=== PATIENT | female | born 1940 | race African-American/Black ===

== ENCOUNTER 2016-07-03 17:44 | Emergency (ER) | payer MEDICARE, MEDICAID ==
[2016-07-03] MEDS ORDERED: traMADol HCl 50 MG TAB ONE (20:15)
--- NOTE | 2016-07-03 21:14 | ERRECORD ---
[facility] EMERGENCY RECORD HPI NECK PAIN (20:14 LLDO) CHIEF COMPLAINT: Patient presents for evaluation of neck pain, Patient presents for evaluation of woke up with neck pain bilaterally, worse on the left. onset yesterday. HISTORIAN: History provided by patient, pt drove herself here today. MECHANISM OF INJURY: Mechanism of injury is unknown, No alcohol use associated with this incident, No drug use associated with this incident, No domestic violence associated with this incident. LOCATION: Symptoms are localized, most severe in the right lateral neck. QUALITY: Pain is dull in nature, described as aching, Different compared with previous episodes. SEVERITY: Maximum severity of symptoms severe, Currently symptoms are moderate. TIME COURSE: Sudden onset of symptoms, Symptoms are constant, Symptoms are worsening. ASSOCIATED WITH: No associated symptoms, No associated numbness, No associated open wounds, Patient over 65 years old, No associated paresthesias, No associated vomiting. EXACERBATED BY: Patient's condition exacerbated by movement of head, Patient's condition exacerbated by rotation. RELIEVED BY: Patient's condition relieved by remaining still. RISK FACTORS: Risk factors for spinal injury, include severe osteoarthritis, include rheumatoid arthritis. ROS CONSTITUTIONAL: Negative constitutional review of systems. (20:17 LLDO) EYES: Negative eye review of systems, Historian denies eye pain, denies eye redness, denies eye discharge. (20:32 LLDO) ENT: Negative ears, nose, throat review of systems, Historian denies epistaxis, denies rhinorrhea, denies sinus pain, denies sore throat. (20:32 LLDO) MUSCULOSKELETAL: Historian reports arthralgias, reports back pain, reports deformity, denies fall, reports injury, denies joint redness, denies joint stiffness, denies joint swelling, reports myalgias, reports neck pain. ONLY IN HPI. (20:17 LLDO) SKIN: Negative skin review of systems, Historian denies cellulitis, denies rash, denies skin changes, denies skin lesions. (20:32 LLDO) NEUROLOGIC: Negative neurologic review of systems, Historian denies confusion, denies dizziness, denies focal weakness, denies mental status changes. (20:32 LLDO) HEMO/LYMPHATIC: Normal hematologic/lymphatic system review, Historian denies abnormal blood clotting, denies gum bleeding, denies petechiae. (20:32 LLDO) ALLERGIC/IMMUNOLOGIC: Normal allergy/immunologic system review, Historian denies eczema, denies environmental allergies, denies food allergies. (20:32 LLDO) &a-1R&a+25V*p+0X*l6456S*c152B*c15G*c2P*p-0X&a-25V&a+1RName: Monique King : 1940 F76 MedRec: [id number] AcctNum: [id number] Prepared: SunJul 03, 2016 20:56 by Interface Page 1 of 4 pMD [facility] EMERGENCY RECORD PSYCHIATRIC: Negative psychiatric review of systems, Historian denies alcohol abuse, denies anxiety, denies depression, denies drug abuse, denies hallucinations. (20:32 LLDO) NOTES: All systems reviewed, negative except as described above. (20:17 LLDO) PAST MEDICAL HISTORY MEDICAL HISTORY: Flu vaccine up to date, Tetanus not up to date, Pneumococcal vaccine not up to date, Notes: GOUT, vaccine not up to date, Past medical history includes history of hypertension, which has been treated, hypertension, which has been treated, Patient is compliant, musculoskeletal disorder, gout, acid reflux. - 09/30/15. VERIFIED 04/07/16. VERIFIED 06/26/16. (SunJul 03, 2016 18:14 MDEB) FEMALE SURGICAL HISTORY: Surgical history of hysterectomy. VERIFIED 04/07/16. VERIFIED . (SunJul 03, 2016 18:14 MDEB) PSYCHIATRIC HISTORY: Psychiatric history includes. DENIES. DENIES 06/26/16. (SunJul 03, 2016 18:14 MDEB) SOCIAL HISTORY: Patient denies alcohol use, Patient denies drug use, Patient has no smoking history, Patient denies alcohol use, Patient denies drug use, Patient has no smoking history. VERIFIED 04/07/16. (SunJul 03, 2016 18:14 MDEB) NOTES: Nursing records reviewed, Agree with nursing records, Medication list reviewed. (20:32 LLDO) KNOWN ALLERGIES codeine phosphate (bulk): Reaction: Rash fish (Unconfirmed) ibuprofen (bulk): Reaction: Hives penicillin G sodium: Reaction: Rash, Severity: Mild, Source: Patient CURRENT MEDICATIONS No recorded medications VITAL SIGNS (18:12 MDEB) VITAL SIGNS: BP: 175/92, Pulse: 98, Resp: 20, Temp: 98.4 (Oral), Pain: 10, O2 sat: 98 on Room Air, Time: 07/03/2016 18:12. PHYSICAL EXAM CONSTITUTIONAL: Vital Signs Reviewed, Patient afebrile, Pulse normal, Blood pressure, BP ELEVATED, Respiratory rate normal, Normal pulse oximetry, Patient appears, uncomfortable, Patient appears, in severe pain distress, Patient alert and oriented to person, place and time, No distracting injujry, Nursing notes reviewed. (20:29 LLDO) HEAD: Head exam normal, Head exam included findings of head atraumatic, normocephalic. (20:32 LLDO) EYES: Eye exam normal, Eye exam included findings of eyelids normal to inspection, Pupils equally round and reactive to light, &a-1R&a+25V*p+0X*p4980Y*c152B*c15G*c2P*p-0X&a-25V&a+1RName: Monique King : 1940 F76 MedRec: [id number] AcctNum: [id number] Prepared: SunJul 03, 2016 20:56 by Interface Page 2 of 4 pMD [facility] RECORD Extraocular muscles intact. (20:32 LLDO) ENT: Ear exam normal, Nose exam normal, Pharynx exam normal, Uvula exam normal, Tonsil exam normal, Mouth exam normal, Sinus exam included findings of frontal sinuses normal, maxillary sinuses normal. (20:29 LLDO) NECK: Neck exam, Neck exam included findings of, range of motion limited by pain, Trachea midline, Thyroid, Signs of trauma include, no carotid bruits, no meningeal signs, no jugular venous distention, no cervical adenopathy, Tenderness, strap muscles on right very tender. much milder on left. (20:29 LLDO) BACK: Back exam normal, Back exam included findings of normal inspection, range of motion normal. (20:32 LLDO) UPPER EXTREMITY: Upper extremity exam normal, Upper extremity exam included findings of inspection normal, Range of motion normal. (20:32 LLDO) LOWER EXTREMITY: Lower extremity exam normal, Lower extremity exam included findings of inspection normal, Range of motion normal. (20:32 LLDO) NEURO: Neuro exam normal, Neuro exam findings include patient oriented to person, place and time, Speech normal, Harpal coma scale 15. (20:32 LLDO) SKIN: Skin exam normal, Skin exam included findings of skin warm, dry, and normal in color, no rash. (20:32 LLDO) PSYCHIATRIC: Psychiatric exam normal, Psychiatric exam included findings of patient oriented to person place and time, Normal affect. (20:32 LLDO) MEDICATION ADMINISTRATION SUMMARY Drug Name: *Ultram, Dose Ordered: 1-2 tab(s), Route: Oral, Status: Given, Time: 20:40 07/03/2016, Drug Name: Ultram, Dose Ordered: 2 tab(s), Route: Oral, Status: Given, Time: 20:15 07/03/2016, *Additional information available in notes, Detailed record available in Medication Service section. PROBLEM LIST No recorded problems DIAGNOSIS (20:03 LLDO) FINAL: PRIMARY: CERVICALGIA. PRESCRIPTION (20:04 LLDO) Valium oral: TABLET : 5 mg : ORAL : Quantity: 1 Unit: tab(s) Route: ORAL Schedule: every 6 hours PRN Dispense: 30 Unit: tab(s) May substitute. Refills: No Refills . NOTES: FOR TIGHTNESS OR MUSCLE SPASMS IN THE BACK No Refills. Ultram: TABLET : 50 mg : ORAL : Quantity: 1-2 Unit: tab(s) Route: ORAL Schedule: every 4 hours prn Dispense: 20 &a-1R&a+25V*p+0X*e2973H*c152B*c15G*c2P*p-0X&a-25V&a+1RName: Christine Monique G : 1940 F76 MedRec: [id number] AcctNum: [id number] Prepared: SunJul 03, 2016 20:56 by Interface Page 3 of 4 pMD [facility] RECORD May substitute. Refills: No Refills POTENTIAL ALLERGY REACTION: 'codeine phosphate (bulk) [codeine/codeine phosphate]' Override Rationale: Reviewed with patient, pt says can safely take this med. NOTES: No Refills. DISPOSITION PATIENT: Disposition Type: Discharge, Disposition: *Discharge Home. (20:03 MARISA) Patient left the department. (20:50 FREDY) Heller: MARISA=MD Julianne, Axel DANIEL=DIPIKA Eckert, Melba &a-1R&a+25V*p+0X*g3444T*c152B*c15G*c2P*p-0X&a-25V&a+1RName: Monique King : 1940 F76 MedRec: [id number] AcctNum: [id number] Prepared: SunJul 03, 2016 20:56 by Interface Page 4 of 4 pMD MTDD
--- NOTE | 2016-07-03 21:19 | PICIS ---
[facility] EMERGENCY RECORD TRIAGE (SunJul 03, 2016 18:14 MDEB) PATIENT: NAME: Monique King, AGE: 76, GENDER: female, : Sat 1940, TIME OF GREET: SunJul 03, 2016 17:45, PREFERRED LANGUAGE: Yoruba, RACE: Black or , ETHNICITY: Not or , FALL RISK: YES, ECODE BILLING MAP: [facility], SSN: [id number], Zip Code: [address], KG WEIGHT: 48.99, PHONE: , , , PERSON ID: [id number], PCP: MD SAMS IMELDA. (SunJul 03, 2016 18:14 MDEB) TRIAGE NOTES: R SIDE NECK PAIN SINCE YESTERDAY MORNING. (SunJul 03, 2016 18:14 MDEB) COMPLAINT: NECK & LT SHOULDER PAIN. (SunJul 03, 2016 18:14 MDEB) ADMISSION: URGENCY: 4 Non Urgent, ADMISSION SOURCE: Home, TRANSPORT: Walk-in, BED: TRIAGE. (SunJul 03, 2016 18:14 MDEB) PAIN: Patient complains of pain described as, aching, on a scale 0-10 patient rates pain as 10. (SunJul 03, 2016 18:14 MDEB) IMMUNIZATIONS: Tetanus immunization up to date, Pneumococcal vaccine up to date. (SunJul 03, 2016 18:14 MDEB) TRIAGE SCREENING: Patient denies suicidal ideation, Patient denies presence of domestic violence. (SunJul 03, 2016 18:14 MDEB) PROVIDERS: TRIAGE NURSE: Melba Eckert RN. (SunJul 03, 2016 18:14 MDEB) VITAL SIGNS: BP 175/92, Pulse 98, Resp 20, Temp 98.4, (Oral), Pain 10, O2 Sat 98, on Room Air, Time 07/03/2016 18:12. (18:12 MDEB) PREVIOUS VISIT ALLERGIES: codeine phosphate (bulk), fish, ibuprofen (bulk), penicillin G sodium. (SunJul 03, 2016 18:14 MDEB) KNOWN ALLERGIES codeine phosphate (bulk): Reaction: Rash fish (Unconfirmed) ibuprofen (bulk): Reaction: Hives penicillin G sodium: Reaction: Rash, Severity: Mild, Source: Patient CURRENT MEDICATIONS No recorded medications VITAL SIGNS (18:12 MDEB) VITAL SIGNS: BP: 175/92, Pulse: 98, Resp: 20, Temp: 98.4 (Oral), Pain: 10, O2 sat: 98 on Room Air, Time: 07/03/2016 18:12. NURSING ASSESSMENT: NECK (18:14 MDEB) CONSTITUTIONAL: Patient arrives ambulatory, Gait steady, History obtained from patient, Patient appears, anxious, in distress due to pain, uncomfortable, Patient cooperative, Patient alert, Oriented to person, place and time, Skin warm, Skin dry, Skin normal in color, Mucous membranes pink, Mucous membranes moist, Patient is well-groomed, Patient complains of R SIDE NECK STRAIN. &a-1R&a+25V*p+0X*d7695R*c152B*c15G*c2P*p-0X&a-25V&a+1RName: Monique King : 1940 F76 MedRec: [id number] AcctNum: [id number] Prepared: SunJul 03, 2016 21:03 by Interface Page 1 of 6 pMD [facility] EMERGENCY RECORD PAIN: aching pain, on a scale 0-10 patient rates pain as 10, Pain exacerbated by nothing, Nothing has been tried to alleviate the pain. NECK: Neck assessment findings include trachea midline. RESPIRATORY/CHEST: Respiratory assessment findings include respiratory effort easy, Respirations regular, Conversing normally, Neck and chest exam findings include trachea midline, Chest expansion equal, Chest movement symmetrical. NOTES: Emotional support needed and given, Patient tolerated procedure well. SAFETY: Side rails up, Cart/Stretcher in lowest position, Family at bedside, Call light within reach, Hospital ID band on. NURSING PROCEDURE: DISCHARGE NOTE (20:45 MDEB) DISCHARGE: Patient discharged to home, ambulating without assistance, driving self, unaccompanied, Summary of Care printed/ provided, Patient requested and was provided an electronic copy of Discharge Instructions, Transition record given to patient, Discharge instructions given to patient, Simple or moderate discharge teaching performed, MEDICATIONS, Prescriptions given and instructions on side effects given, Above person(s) verbalized understanding of discharge instructions and follow-up care, Patient treated and evaluated by physician. BELONGINGS: Belongings remain with patient, Valuables remain with patient. NOTES: Emotional support needed and given, Patient tolerated procedure well. MEDICATION ADMINISTRATION SUMMARY Drug Name: *Ultram, Dose Ordered: 1-2 tab(s), Route: Oral, Status: Given, Time: 20:40 07/03/2016, Drug Name: Ultram, Dose Ordered: 2 tab(s), Route: Oral, Status: Given, Time: 20:15 07/03/2016, *Additional information available in notes, Detailed record available in Medication Service section. MEDICATION SERVICE Ultram: Order: Ultram (tramadol HCl) - Dose: 2 tab(s) : Oral POTENTIAL ALLERGY REACTION: 'codeine phosphate (bulk) [codeine/codeine phosphate]' - Reviewed with patient, pt says can safely take this med Schedule: Now Ordered by: Axel Whitaker MD Entered by: Axel Whitaker MD SunJul 03, 2016 20:01 , Acknowledged by: Melba Eckert RN SunJul 03, 2016 20:14 Documented as given by: Melba Eckert RN SunJul 03, 2016 20:15 Patient, Medication, Dose, Route and Time verified prior to administration. Amount given: 2 TABS, Site: Medication administered P.O., Correct patient, time, route, dose and medication confirmed prior to &a-1R&a+25V*p+0X*j1071B*c152B*c15G*c2P*p-0X&a-25V&a+1RName: Monique King : 1940 F76 MedRec: [id number] AcctNum: [id number] Prepared: SunJul 03, 2016 21:03 by Interface Page 2 of 6 pMD [facility] EMERGENCY RECORD administration, Patient advised of actions and side-effects prior to administration, Allergies confirmed and medications reviewed prior to administration, Patient in position of comfort, Side rails up, Cart in lowest position, Family at bedside. Ultram: Order: Ultram (tramadol HCl) - Dose: 1-2 tab(s) : Oral POTENTIAL ALLERGY REACTION: 'codeine phosphate (bulk) [codeine/codeine phosphate]' - Reviewed with patient Notes: Take home pack of 6 tabs. Take 1-2 tablets every 4-6 hours as needed for pain Ordered by: Axel Whitaker MD Entered by: Axel Whitaker MD SunJul 03, 2016 20:28 , Acknowledged by: Melba Eckert RN SunJul 03, 2016 20:36 Documented as given by: Melba Eckert RN SunJul 03, 2016 20:40 Patient, Medication, Dose, Route and Time verified prior to administration. Amount given: [id number], Site: Medication administered P.O., Patient in position of comfort, Side rails up, Cart in lowest position, Family at bedside. HPI NECK PAIN (20:14 LLDO) CHIEF COMPLAINT: Patient presents for evaluation of neck pain, Patient presents for evaluation of woke up with neck pain bilaterally, worse on the left. onset yesterday. HISTORIAN: History provided by patient, pt drove herself here today. MECHANISM OF INJURY: Mechanism of injury is unknown, No alcohol use associated with this incident, No drug use associated with this incident, No domestic violence associated with this incident. LOCATION: Symptoms are localized, most severe in the right lateral neck. QUALITY: Pain is dull in nature, described as aching, Different compared with previous episodes. SEVERITY: Maximum severity of symptoms severe, Currently symptoms are moderate. TIME COURSE: Sudden onset of symptoms, Symptoms are constant, Symptoms are worsening. ASSOCIATED WITH: No associated symptoms, No associated numbness, No associated open wounds, Patient over 65 years old, No associated paresthesias, No associated vomiting. EXACERBATED BY: Patient's condition exacerbated by movement of head, Patient's condition exacerbated by rotation. RELIEVED BY: Patient's condition relieved by remaining still. RISK FACTORS: Risk factors for spinal injury, include severe osteoarthritis, include rheumatoid arthritis. ROS CONSTITUTIONAL: Negative constitutional review of systems. (20:17 LLDO) EYES: Negative eye review of systems, Historian denies eye pain, denies eye redness, denies eye discharge. (20:32 LLDO) &a-1R&a+25V*p+0X*z2966T*c152B*c15G*c2P*p-0X&a-25V&a+1RName: Monique King : 1940 F76 MedRec: [id number] AcctNum: [id number] Prepared: SunJul 03, 2016 21:03 by Interface Page 3 of 6 pMD [facility] EMERGENCY RECORD ENT: Negative ears, nose, throat review of systems, Historian denies epistaxis, denies rhinorrhea, denies sinus pain, denies sore throat. (20:32 LLDO) MUSCULOSKELETAL: Historian reports arthralgias, reports back pain, reports deformity, denies fall, reports injury, denies joint redness, denies joint stiffness, denies joint swelling, reports myalgias, reports neck pain. ONLY IN HPI. (20:17 LLDO) SKIN: Negative skin review of systems, Historian denies cellulitis, denies rash, denies skin changes, denies skin lesions. (20:32 LLDO) NEUROLOGIC: Negative neurologic review of systems, Historian denies confusion, denies dizziness, denies focal weakness, denies mental status changes. (20:32 LLDO) HEMO/LYMPHATIC: Normal hematologic/lymphatic system review, Historian denies abnormal blood clotting, denies gum bleeding, denies petechiae. (20:32 LLDO) ALLERGIC/IMMUNOLOGIC: Normal allergy/immunologic system review, Historian denies eczema, denies environmental allergies, denies food allergies. (20:32 LLDO) PSYCHIATRIC: Negative psychiatric review of systems, Historian denies alcohol abuse, denies anxiety, denies depression, denies drug abuse, denies hallucinations. (20:32 LLDO) NOTES: All systems reviewed, negative except as described above. (20:17 LLDO) PAST MEDICAL HISTORY MEDICAL HISTORY: Flu vaccine up to date, Tetanus not up to date, Pneumococcal vaccine not up to date, Notes: GOUT, vaccine not up to date, Past medical history includes history of hypertension, which has been treated, hypertension, which has been treated, Patient is compliant, musculoskeletal disorder, gout, acid reflux. - 09/30/15. VERIFIED 04/07/16. VERIFIED 06/26/16. (SunJul 03, 2016 18:14 MDEB) FEMALE SURGICAL HISTORY: Surgical history of hysterectomy. VERIFIED 04/07/16. VERIFIED . (SunJul 03, 2016 18:14 MDEB) PSYCHIATRIC HISTORY: Psychiatric history includes. DENIES. DENIES 06/26/16. (SunJul 03, 2016 18:14 MDEB) SOCIAL HISTORY: Patient denies alcohol use, Patient denies drug use, Patient has no smoking history, Patient denies alcohol use, Patient denies drug use, Patient has no smoking history. VERIFIED 04/07/16. (SunJul 03, 2016 18:14 MDJAMAL) NOTES: Nursing records reviewed, Agree with nursing records, Medication list reviewed. (20:32 LLDO) PHYSICAL EXAM CONSTITUTIONAL: Vital Signs Reviewed, Patient afebrile, Pulse normal, Blood pressure, BP ELEVATED, Respiratory rate normal, Normal pulse oximetry, Patient appears, uncomfortable, Patient appears, in severe &a-1R&a+25V*p+0X*c0867Y*c152B*c15G*c2P*p-0X&a-25V&a+1RName: Monique King : 1940 F76 MedRec: [id number] AcctNum: [id number] Prepared: SunJul 03, 2016 21:03 by Interface Page 4 of 6 pMD [facility] EMERGENCY RECORD pain distress, Patient alert and oriented to person, place and time, No distracting injujry, Nursing notes reviewed. (20:29 LLDO) HEAD: Head exam normal, Head exam included findings of head atraumatic, normocephalic. (20:32 LLDO) EYES: Eye exam normal, Eye exam included findings of eyelids normal to inspection, Pupils equally round and reactive to light, Extraocular muscles intact. (20:32 LLDO) ENT: Ear exam normal, Nose exam normal, Pharynx exam normal, Uvula exam normal, Tonsil exam normal, Mouth exam normal, Sinus exam included findings of frontal sinuses normal, maxillary sinuses normal. (20:29 LLDO) NECK: Neck exam, Neck exam included findings of, range of motion limited by pain, Trachea midline, Thyroid, Signs of trauma include, no carotid bruits, no meningeal signs, no jugular venous distention, no cervical adenopathy, Tenderness, strap muscles on right very tender. much milder on left. (20:29 LLDO) BACK: Back exam normal, Back exam included findings of normal inspection, range of motion normal. (20:32 LLDO) UPPER EXTREMITY: Upper extremity exam normal, Upper extremity exam included findings of inspection normal, Range of motion normal. (20:32 LLDO) LOWER EXTREMITY: Lower extremity exam normal, Lower extremity exam included findings of inspection normal, Range of motion normal. (20:32 LLDO) NEURO: Neuro exam normal, Neuro exam findings include patient oriented to person, place and time, Speech normal, [place] coma scale 15. (20:32 LLDO) SKIN: Skin exam normal, Skin exam included findings of skin warm, dry, and normal in color, no rash. (20:32 LLDO) PSYCHIATRIC: Psychiatric exam normal, Psychiatric exam included findings of patient oriented to person place and time, Normal affect. (20:32 LLDO) EVENTS TRANSFER: Triage to Emergency Triage. (18:14 MDEB) Emergency Triage to Waiting. (18:15 MDEB) Emergency Waiting to Main ED -04. (18:43 MDEB) Removed from Emergency Main ED -04. (20:50 MDEB) PROBLEM LIST No recorded problems DIAGNOSIS (20:03 LLDO) FINAL: PRIMARY: CERVICALGIA. DISPOSITION PATIENT: Disposition Type: Discharge, Disposition: *Discharge Home. (20:03 LLDO) Patient left the department. (20:50 MDEB) &a-1R&a+25V*p+0X*z9123B*c152B*c15G*c2P*p-0X&a-25V&a+1RName: Monique King : 1940 F76 MedRec: [id number] AcctNum: [id number] Prepared: SunJul 03, 2016 21:03 by Interface Page 5 of 6 pMD [facility] EMERGENCY RECORD INSTRUCTION (20:06 LLDO) DISCHARGE: NECK PAIN, NO TRAUMA. FOLLOWUP: MD FLAQUITA, [facility], [facility], [address] [place] [id number], [phone], Follow up with Primary Care Physician in 7-10 days. SPECIAL: Follow-up with your PCP. PRESCRIPTION (20:04 LLDO) Valium oral: TABLET : 5 mg : ORAL : Quantity: 1 Unit: tab(s) Route: ORAL Schedule: every 6 hours PRN Dispense: 30 Unit: tab(s) May substitute. Refills: No Refills . NOTES: FOR TIGHTNESS OR MUSCLE SPASMS IN THE BACK No Refills. Ultram: TABLET : 50 mg : ORAL : Quantity: 1-2 Unit: tab(s) Route: ORAL Schedule: every 4 hours prn Dispense: 20 May substitute. Refills: No Refills POTENTIAL ALLERGY REACTION: 'codeine phosphate (bulk) [codeine/codeine phosphate]' Override Rationale: Reviewed with patient, pt says can safely take this med. NOTES: No Refills. ADMIN (20:33 LLDO) DIGITAL SIGNATURE: MD Whitaker Lloyd. Heller: LLDO=MD Whitaker Lloyd MDEB=DIPIKA Eckert, Melba &a-1R&a+25V*p+0X*c8249G*c152B*c15G*c2P*p-0X&a-25V&a+1RName: Monique King : 1940 F76 MedRec: [id number] AcctNum: [id number] Prepared: SunJul 03, 2016 21:03 by Interface Page 6 of 6 pMD [facility] MEDICATION RECONCILIATION You were seen in the Emergency Department on: SunJul 03, 2016 KNOWN ALLERGIES codeine phosphate (bulk): Reaction: Rash fish (Unconfirmed) ibuprofen (bulk): Reaction: Hives penicillin G sodium: Reaction: Rash, Severity: Mild, Source: Patient MEDICATIONS GIVEN WHILE IN THE EMERGENCY DEPARTMENT Ultram (tramadol HCl) - Dose: 2 tab(s) : Oral Ultram (tramadol HCl) - Dose: 1-2 tab(s) : Oral Notes from the emergency department Reviewed with patient PRESCRIPTIONS (2) Printed (2) Valium oral : TABLET : 5 mg : ORAL Quantity: 1, Unit: tab(s), Route: ORAL, Schedule: every 6 hours PRN, Dispense: 30 Unit: tab(s) &a-1R&a+25V*p+0X*o5940F*c202B*c15G*c2P*p-0X&a-25V&a+1R Name: Monique King : 1940 F76 MedRec: [id number] AcctNum: [id number] Prepared: SunJul 03, 2016 21:03 by Interface pMD [facility]ITAL[facility]
== END 2016-07-03 20:45 | disposition home or self-care (01) ==
LOC: MADERS 17:44
DX: M54.2 Cervicalgia (principal); I10 Essential (primary) hypertension; Z90.710 Acquired absence of both cervix and uterus
CPT/HCPCS: 99283

== ENCOUNTER 2016-08-07 07:49 | Outpatient (CLI) | payer MEDICARE, MEDICAID ==
[2016-08-07 08:23] LABS: #Lymphocytes 0.9 thou/uL (1.20-3.40); #Monocytes 0.3 thou/uL (0.11-0.59); %Basophils 0.6 % (0.0-1.0); %Lymphocytes 17.4 % (21.0-51.0); %Monocytes 5.8 % (0.0-10.0); %Neutrophils 76.2 % (42.0-75.0); Mean Corpuscular HGB CONC 34.4 g/dL (32.0-36.0); Mean Corpuscular Hemoglobin 29.9 pg (27.0-31.0); Mean Corpuscular Volume 87.1 fl (81.0-99.0); Platelet Count 181 thou/uL (130-400); RBC Distribution Width 12.4 % (11.5-14.5); Red Blood Cell (RBC) Count 3.69 mill/uL (4.20-5.40); White Blood Cell (WBC) Count 5.2 thou/uL (4.8-10.8)
[2016-08-07 08:40] LABS: ALT (SGPT) Less than 6 U/L (0-55); AST (SGOT) 9 U/L (5-34); Alkaline Phosphatase 86 U/L (40-150); Anion Gap 16 mmol/L (10-20); BUN (Urea Nitrogen) 25 mg/dL (9.8-20.1); Bilirubin, Total 0.3 mg/dL (0.2-1.2); Calc. Creatinine Clearance 0 mL/min (70-130); Calcium 9.4 mg/dL (7.8-10.44); Carbon Dioxide 25 mmol/L (23-31); Cardiac Risk 2.9 (Less than 4.5); Chloride 107 mmol/L (98-107); Cholesterol 196 mg/dL (< 200 Desired); Estimated GFR-MDRD 53; Globulin 3.3 g/dL (2.4-3.5); Glucose 100 mg/dL (83-110); HDL Cholesterol 67 mg/dL (>60 Neg Risk); LDL Cholesterol, Calculated 115 mg/dL; Potassium 4.3 mmol/L (3.5-5.1); Protein, Total 7.3 g/dL (5.8-8.1); Sodium 144 mmol/L (136-145); Triglycerides 68 mg/dL (Less than 150); Uric Acid 5.9 mg/dL (2.6-6.0)
[2016-08-07 17:00] LABS: Iron 51 ug/dL (50-170)
== END 2016-08-07 07:50 ==
LOC: MADLABBHPM 07:49
PROVIDERS: ATTEND Family Medicine
DX: D64.9 Anemia, unspecified (principal); M1A.9XX0 Chronic gout, unspecified, without tophus (tophi); I10 Essential (primary) hypertension
CPT/HCPCS: 36415; 80053; 80061; 82728; 83540; 84550; 85025

== ENCOUNTER 2016-08-10 16:48 | Emergency (ER) | payer MEDICARE, MEDICAID ==
[2016-08-10] MEDS ORDERED: Clindamycin 150 MG CAP ONE (18:06)
[2016-08-10] MEDS ORDERED: Benzonatate 100 MG CAP ONE ×2 (18:06→18:11)
== END 2016-08-10 18:16 | disposition home or self-care (01) ==
LOC: MADERS 16:48
DX: J20.9 Acute bronchitis, unspecified (principal); I10 Essential (primary) hypertension; M10.9 Gout, unspecified; Z79.899 Other long term (current) drug therapy
CPT/HCPCS: 99284

== ENCOUNTER 2016-09-06 10:13 | Emergency (ER) | payer MEDICARE, MEDICAID ==
[2016-09-06] MEDS ORDERED: Oxymetazoline HCl 0.05% ( 15 ML ) ONE (10:58)
[2016-09-06] MEDS ORDERED: Benzonatate 100 MG CAP ONE (10:58)
[2016-09-06] MEDS ORDERED: Clindamycin 150 MG CAP ONE (10:58)
== END 2016-09-06 11:15 | disposition home or self-care (01) ==
LOC: MADERS 10:13
DX: J20.9 Acute bronchitis, unspecified (principal); J30.1 Allergic rhinitis due to pollen; I10 Essential (primary) hypertension; Z79.899 Other long term (current) drug therapy
CPT/HCPCS: 99283

== ENCOUNTER 2016-09-12 20:07 | Emergency (ER) | payer MEDICARE, MEDICAID ==
[2016-09-12] MEDS ORDERED: Bisacodyl 10 MG SUPP ONE ×2 (20:25→21:45)
[2016-09-12] MEDS ORDERED: Fleet Enema 133 ML BOT ONE (20:51)
--- NOTE | 2016-09-12 21:20 | RAD ---
ABDOMEN TWO VIEWS UPRIGHT CHEST X-RAY 09/12/16 HISTORY: Abdominal pain. COMPARISON: Chest radiographs 06/20/13 FINDINGS: There is some granulomas throughout the lungs similar to the comparison examination. Severe degenera tive change of the right glenohumeral joint. There has been prior resection of the left humeral diap hysis. Heart size is similar. No free air under the hemidiaphragms on the upright view of the chest. There is relative paucity of bowel gas. There appears to be large stool burden in the rectal vault. IMPRESSION: 1. No acute intrathoracic abnormality. 2. Large volume stool throughout the rectal vault with relative paucity of gas, likely sequela of constipation. 3. No dilated loops of air filled large or small bowel. 4. Extensive spondylosis throughout the lumbar spine. POS: NANCY
[2016-09-12] MEDS ORDERED: Magnesium Citrate 300 ML BOT ONE (22:02)
== END 2016-09-12 22:45 | disposition home or self-care (01) ==
LOC: MADERS 20:07
DX: K59.00 Constipation, unspecified (principal); I10 Essential (primary) hypertension; Z79.899 Other long term (current) drug therapy
CPT/HCPCS: 74022

== ENCOUNTER 2016-10-29 11:45 | Emergency (ER) | payer MEDICARE, MEDICAID | END 2016-10-29 12:26 | disposition home or self-care (01) | LOC: MADERS 11:45 | DX: M19.072 Primary osteoarthritis, left ankle and foot (principal); M19.071 Primary osteoarthritis, right ankle and foot; M10.9 Gout, unspecified; I10 Essential (primary) hypertension; K21.9 Gastro-esophageal reflux disease without esophagitis; Z79.899 Other long term (current) drug therapy | CPT/HCPCS: 99283 ==

== ENCOUNTER 2016-11-06 07:37 | Outpatient (CLI) | payer MEDICARE, MEDICAID ==
[2016-11-06 07:59] LABS: #Lymphocytes 0.8 thou/uL (1.20-3.40); #Monocytes 0.3 thou/uL (0.11-0.59); #Neutrophils 4.3 thou/uL (1.40-6.50); %Basophils 0.5 % (0.0-1.0); %Lymphocytes 15.4 % (21.0-51.0); %Monocytes 6.3 % (0.0-10.0); %Neutrophils 77.9 % (42.0-75.0); Hemoglobin 10.3 g/dL (12.0-16.0); Mean Corpuscular HGB CONC 33.6 g/dL (32.0-36.0); Mean Corpuscular Hemoglobin 29.9 pg (27.0-31.0); Mean Platelet Volume 6.6 fL (7.4-10.4); Platelet Count 197 thou/uL (130-400); RBC Distribution Width 12.9 % (11.5-14.5); Red Blood Cell (RBC) Count 3.45 mill/uL (4.20-5.40); White Blood Cell (WBC) Count 5.5 thou/uL (4.8-10.8)
== END 2016-11-06 07:38 | disposition home or self-care (01) ==
LOC: MADLABBHPM 07:37
PROVIDERS: ATTEND Family Medicine
DX: E61.1 Iron deficiency (principal)
CPT/HCPCS: 36415; 82728; 83540; 85025

== ENCOUNTER 2016-11-06 17:48 | Emergency (ER) | payer MEDICARE, MEDICAID ==
[2016-11-06] MEDS ORDERED: cloNIDine HCl 0.1 MG TAB ONE (18:20)
== END 2016-11-06 19:23 | disposition home or self-care (01) ==
LOC: MADERS 17:48
DX: I10 Essential (primary) hypertension (principal); K21.9 Gastro-esophageal reflux disease without esophagitis; Z79.899 Other long term (current) drug therapy
CPT/HCPCS: 99283

== ENCOUNTER 2017-01-07 06:29 | Emergency (ER) | payer MEDICARE, MEDICAID ==
[2017-01-07] MEDS ORDERED: Acetaminophen 325 MG TAB ONE (07:44)
--- NOTE | 2017-01-07 09:12 | RAD ---
3 VIEWS RIGHT SHOULDER: Date: 01/07/17 COMPARISON: None. HISTORY: Severe osteoarthritis. Trauma to the shoulder. FINDINGS: Three views of the right shoulder show no evidence of acute fracture or dislocation. There is severe joint space narrowing and osteophyte formation in the glenohumeral and acromioclavicular joints con sistent with severe osteoarthritis. The visualized right thorax is unremarkable. IMPRESSION: Severe right shoulder osteoarthritis without acute osseous abnormality. POS: [facility]
== END 2017-01-07 08:05 | disposition home or self-care (01) ==
LOC: MADERS 06:29
DX: S43.401A Unspecified sprain of right shoulder joint, initial encounter (principal); M10.9 Gout, unspecified; I10 Essential (primary) hypertension; K21.9 Gastro-esophageal reflux disease without esophagitis; Z79.899 Other long term (current) drug therapy; W01.0XXA Fall on same level from slipping, tripping and stumbling without subsequent striking against object, initial encounter

== ENCOUNTER 2017-01-16 07:53 | Outpatient (CLI) | payer MEDICARE, MEDICAID ==
[2017-01-16 08:21] LABS: #Lymphocytes 0.8 thou/uL (1.20-3.40); #Monocytes 0.3 thou/uL (0.11-0.59); #Neutrophils 3.8 thou/uL (1.40-6.50); %Basophils 0.5 % (0.0-1.0); %Lymphocytes 17.2 % (21.0-51.0); %Monocytes 5.6 % (0.0-10.0); %Neutrophils 76.7 % (42.0-75.0); Hemoglobin 9.7 g/dL (12.0-16.0); Mean Corpuscular HGB CONC 32.4 g/dL (32.0-36.0); Mean Corpuscular Hemoglobin 28.4 pg (27.0-31.0); Mean Corpuscular Volume 87.7 fl (81.0-99.0); Mean Platelet Volume 5.9 fL (7.4-10.4); Platelet Count 203 thou/uL (130-400); RBC Distribution Width 13.1 % (11.5-14.5); White Blood Cell (WBC) Count 4.9 thou/uL (4.8-10.8)
[2017-01-16 08:35] LABS: ALT (SGPT) 6 U/L (8-55); AST (SGOT) 10 U/L (5-34); Albumin 3.6 g/dL (3.4-4.8); Alkaline Phosphatase 70 U/L (40-150); Anion Gap 15 mmol/L (10-20); BUN (Urea Nitrogen) 24 mg/dL (9.8-20.1); Bilirubin, Total Less than 0.3 mg/dL (0.2-1.2); Calc. Creatinine Clearance 0 mL/min (70-130); Calcium 9.3 mg/dL (7.8-10.44); Carbon Dioxide 20 mmol/L (23-31); Chloride 115 mmol/L (98-107); Estimated GFR-MDRD 49; Globulin 3.9 g/dL (2.4-3.5); Glucose 92 mg/dL (83-110); Potassium 4.9 mmol/L (3.5-5.1); Protein, Total 7.5 g/dL (6.0-8.3); Sodium 145 mmol/L (136-145)
[2017-01-16 17:41] LABS: Iron 70 ug/dL (50-170)
== END 2017-01-16 07:54 | disposition home or self-care (01) ==
LOC: MADLABBHPM 07:53
PROVIDERS: ATTEND Family Medicine
DX: E61.1 Iron deficiency (principal); I10 Essential (primary) hypertension
CPT/HCPCS: 36415; 80053; 82728; 83540; 85025

== ENCOUNTER 2017-01-23 23:16 | Emergency (ER) | payer MEDICARE, MEDICAID ==
[2017-01-23] MEDS ORDERED: Acetaminophen 500 MG TAB ONE (23:40)
[2017-01-23] MEDS ORDERED: Lisinopril 10 MG TAB ONE (23:40)
[2017-01-23] MEDS ORDERED: HYDROcodone/Acetaminophen 5/325 mg Tablet ONE (23:40)
[2017-01-23 23:55] LABS: #Lymphocytes 0.8 thou/uL (1.20-3.40); #Monocytes 0.6 thou/uL (0.11-0.59); #Neutrophils 8.3 thou/uL (1.40-6.50); %Basophils 0.2 % (0.0-1.0); %Lymphocytes 8.3 % (21.0-51.0); %Monocytes 6.2 % (0.0-10.0); %Neutrophils 85.2 % (42.0-75.0); Hemoglobin 9.3 g/dL (12.0-16.0); Mean Corpuscular HGB CONC 32.1 g/dL (32.0-36.0); Mean Corpuscular Hemoglobin 28.1 pg (27.0-31.0); Mean Corpuscular Volume 87.5 fl (81.0-99.0); Mean Platelet Volume 6.7 fL (7.4-10.4); Platelet Count 185 thou/uL (130-400); RBC Distribution Width 13.4 % (11.5-14.5); Red Blood Cell (RBC) Count 3.32 mill/uL (4.20-5.40); White Blood Cell (WBC) Count 9.7 thou/uL (4.8-10.8)
[2017-01-24] MEDS ORDERED: Dexamethasone 4 MG TAB ONE (00:02)
[2017-01-24 00:13] LABS: Anion Gap 14 mmol/L (10-20); BUN (Urea Nitrogen) 19 mg/dL (9.8-20.1); Calc. Creatinine Clearance 0 mL/min (70-130); Calcium 9.2 mg/dL (7.8-10.44); Carbon Dioxide 20 mmol/L (23-31); Chloride 110 mmol/L (98-107); Estimated GFR-MDRD 50; Glucose 109 mg/dL (83-110); Potassium 4.1 mmol/L (3.5-5.1); Sodium 140 mmol/L (136-145)
== END 2017-01-24 00:35 | disposition home or self-care (01) ==
LOC: MADERS 23:16
DX: M25.561 Pain in right knee (principal); I10 Essential (primary) hypertension; M10.9 Gout, unspecified; K21.9 Gastro-esophageal reflux disease without esophagitis; Z79.899 Other long term (current) drug therapy
CPT/HCPCS: 36415; 80048; 85025; 99283; J8540

== ENCOUNTER 2017-02-12 07:45 | Outpatient (CLI) | payer MEDICARE, MEDICAID ==
[2017-02-12 08:23] LABS: #Lymphocytes 0.9 thou/uL (1.20-3.40); #Monocytes 0.4 thou/uL (0.11-0.59); #Neutrophils 5.3 thou/uL (1.40-6.50); %Basophils 0.5 % (0.0-1.0); %Eosinophils 0.1 % (0.0-10.0); %Lymphocytes 13.2 % (21.0-51.0); %Monocytes 6.3 % (0.0-10.0); Hemoglobin 9.3 g/dL (12.0-16.0); Mean Corpuscular HGB CONC 32.5 g/dL (32.0-36.0); Mean Corpuscular Hemoglobin 28.5 pg (27.0-31.0); Mean Corpuscular Volume 87.6 fl (81.0-99.0); Mean Platelet Volume 6.6 fL (7.4-10.4); Platelet Count 183 thou/uL (130-400); RBC Distribution Width 15.4 % (11.5-14.5); Red Blood Cell (RBC) Count 3.28 mill/uL (4.20-5.40); White Blood Cell (WBC) Count 6.7 thou/uL (4.8-10.8)
[2017-02-12 08:45] LABS: ALT (SGPT) 6 U/L (8-55); AST (SGOT) 11 U/L (5-34); Albumin 3.7 g/dL (3.4-4.8); Alkaline Phosphatase 68 U/L (40-150); Anion Gap 13 mmol/L (10-20); BUN (Urea Nitrogen) 17 mg/dL (9.8-20.1); Bilirubin, Total 0.3 mg/dL (0.2-1.2); Calc. Creatinine Clearance 0 mL/min (70-130); Carbon Dioxide 24 mmol/L (23-31); Chloride 111 mmol/L (98-107); Estimated GFR-MDRD 60; Globulin 3.5 g/dL (2.4-3.5); Glucose 100 mg/dL (83-110); Potassium 4.3 mmol/L (3.5-5.1); Protein, Total 7.2 g/dL (6.0-8.3); Sodium 144 mmol/L (136-145)
[2017-02-12 18:04] LABS: Iron 50 ug/dL (50-170)
[2017-02-12 18:20] LABS: Creatinine, Urine 47.09 mg/dL (47-110)
[2017-02-12 18:25] LABS: Microalbumin Urine 102.5 mg/dL (0.5-50.0); Microalbumin/Creat Ratio 2176.7 mg/g (Less than 30)
== END 2017-02-12 07:46 | disposition home or self-care (01) ==
LOC: MADLABBHPM 07:45
PROVIDERS: ATTEND Family Medicine
DX: N18.3 Chronic kidney disease, stage 3 (moderate) (principal); D63.1 Anemia in chronic kidney disease; E61.1 Iron deficiency
CPT/HCPCS: 36415; 80053; 82043; 82728; 83540; 85025

== ENCOUNTER 2017-02-28 23:38 | Emergency (ER) | payer MEDICARE, MEDICAID ==
[2017-02-28] MEDS ORDERED: Lisinopril 10 MG TAB ONE (23:56)
[2017-02-28] MEDS ORDERED: Hydrochlorothiazide 25 MG TAB ONE (23:59)
== END 2017-03-01 00:25 | disposition home or self-care (01) ==
LOC: MADERS 23:38
DX: Z76.0 Encounter for issue of repeat prescription (principal); D64.9 Anemia, unspecified; I10 Essential (primary) hypertension; K21.9 Gastro-esophageal reflux disease without esophagitis; Z79.899 Other long term (current) drug therapy
CPT/HCPCS: 99281

== ENCOUNTER 2017-05-08 19:00 | Emergency (ER) | payer MEDICARE, MEDICAID | END 2017-05-08 19:35 | disposition home or self-care (01) | LOC: MADERS 19:00 | DX: J02.9 Acute pharyngitis, unspecified (principal); H92.02 Otalgia, left ear; D64.9 Anemia, unspecified; M10.9 Gout, unspecified; I10 Essential (primary) hypertension; Z87.891 Personal history of nicotine dependence | CPT/HCPCS: 99283 ==

== ENCOUNTER 2017-05-10 10:48 | Emergency (ER) | payer MEDICARE, MEDICAID ==
[2017-05-10] MEDS ORDERED: diphenhydrAMINE 25 MG CAP ONE (12:43)
[2017-05-10] MEDS ORDERED: HYDROcodone/Acetaminophen 10/325 mg Tablet ONE (12:43)
[2017-05-10] MEDS ORDERED: Diazepam 5 MG TAB ONE (13:02)
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
== END 2017-05-10 13:20 | disposition home or self-care (01) ==
LOC: MADERS 10:48
DX: M62.830 Muscle spasm of back (principal); M41.9 Scoliosis, unspecified; M10.9 Gout, unspecified; I10 Essential (primary) hypertension; K21.9 Gastro-esophageal reflux disease without esophagitis; Z87.891 Personal history of nicotine dependence; V43.52XA Car driver injured in collision with other type car in traffic accident, initial encounter
CPT/HCPCS: 72128; 72131

== ENCOUNTER 2017-06-24 14:23 | Emergency (ER) | payer MEDICARE, MEDICAID ==
[2017-06-24] MEDS ORDERED: Lidocaine Viscous Sol 2% 15 ml UD Cup ONE (14:57)
[2017-06-24] MEDS ORDERED: Mag-Al Plus 1200 MG/1200 MG/120 MG/30 ML UDCUP ONE (14:57)
[2017-06-24] MEDS ORDERED: Ondansetron ODT 4 MG TAB ONE (15:22)
== END 2017-06-24 15:40 | disposition home or self-care (01) ==
LOC: MADERS 14:23
DX: K22.2 Esophageal obstruction (principal); K21.0 Gastro-esophageal reflux disease with esophagitis; I10 Essential (primary) hypertension; M10.9 Gout, unspecified; Z87.891 Personal history of nicotine dependence; Z79.899 Other long term (current) drug therapy
CPT/HCPCS: 99283; Q0162

== ENCOUNTER 2017-06-25 20:22 | Emergency (ER) | payer MEDICARE, MEDICAID | END 2017-06-25 23:28 | disposition left against medical advice (07) | LOC: MADERS 20:22 | DX: Z53.21 Procedure and treatment not carried out due to patient leaving prior to being seen by health care provider (principal) ==

== ENCOUNTER 2017-07-20 07:55 | Emergency (ER) | payer MEDICARE, MEDICAID ==
[2017-07-20] MEDS ORDERED: Benzonatate 100 MG CAP ONE (08:28)
--- NOTE | 2017-07-20 09:21 | RAD ---
CHEST 2 VIEWS: Date: 07/20/17 HISTORY: Cough and congestion. COMPARISON: 06/20/13. FINDINGS: Cardiac silhouette and pulmonary vasculature remain upper limits of normal. Mediastinum is midline. T here is no confluent air space consolidation, pneumothorax, or pleural fluid apparent. Deformity of t he right humeral head and ununited fracture of the left humeral shaft are apparent. IMPRESSION: Chronic-type findings are stable. No active cardiopulmonary abnormalities are demonstrated. POS: [facility]
== END 2017-07-20 09:35 | disposition home or self-care (01) ==
LOC: MADERS 07:55
DX: J06.9 Acute upper respiratory infection, unspecified (principal); I10 Essential (primary) hypertension; M10.9 Gout, unspecified; F41.9 Anxiety disorder, unspecified; Z79.899 Other long term (current) drug therapy
CPT/HCPCS: 71046

== ENCOUNTER 2018-01-06 16:04 | Emergency (ER) | payer MEDICARE, MEDICAID ==
[~2018-01-06 16:04] MED LIST: Sodium Chloride 0.9% 500 ML BAG ONE
[2018-01-06 16:58] LABS: #Lymphocytes 0.3 thou/uL (1.20-3.40); #Monocytes 0.2 thou/uL (0.11-0.59); #Neutrophils 9.1 thou/uL (1.40-6.50); %Basophils 0.1 % (0.0-1.0); %Lymphocytes 2.6 % (21.0-51.0); %Monocytes 2.1 % (0.0-10.0); %Neutrophils 95.2 % (42.0-75.0); Hemoglobin 10.3 g/dL (12.0-16.0); Mean Corpuscular HGB CONC 32.5 g/dL (32.0-36.0); Mean Corpuscular Hemoglobin 28.3 pg (27.0-31.0); Mean Platelet Volume 5.6 fL (7.4-10.4); Platelet Count 170 thou/uL (130-400); RBC Distribution Width 12.9 % (11.5-14.5); Red Blood Cell (RBC) Count 3.63 mill/uL (4.20-5.40); White Blood Cell (WBC) Count 9.6 thou/uL (4.8-10.8)
[2018-01-06 17:12] LABS: ALT (SGPT) Less than 7 U/L (8-55); AST (SGOT) 12 U/L (5-34); Albumin 3.8 g/dL (3.4-4.8); Alkaline Phosphatase 73 U/L (40-150); Anion Gap 16 mmol/L (10-20); BUN (Urea Nitrogen) 26 mg/dL (9.8-20.1); Bilirubin, Total 0.4 mg/dL (0.2-1.2); Calc. Creatinine Clearance 0 mL/min (70-130); Calcium 9.2 mg/dL (7.8-10.44); Carbon Dioxide 15 mmol/L (23-31); Chloride 116 mmol/L (98-107); Estimated GFR-MDRD 46; Globulin 3.3 g/dL (2.4-3.5); Glucose 129 mg/dL (83-110); Potassium 4.3 mmol/L (3.5-5.1); Protein, Total 7.1 g/dL (6.0-8.3); Sodium 143 mmol/L (136-145)
[2018-01-06] MEDS ORDERED: Acetaminophen 325 MG TAB ONE (17:40)
[2018-01-06] MEDS ORDERED: hydrALAZINE 20 MG/ML VIAL ONE (17:40)
[2018-01-06] MEDS ORDERED: Ondansetron HCl/PF 4 MG/2 ML Vial ONE (18:59)
[2018-01-06 19:57] LABS: Bilirubin Negative (Negative); Blood, Urine Negative (Negative); Clarity Hazy (Clear); Glucose, Urine (Dipstick) Negative (Negative); Leukocyte Small (Negative); Nitrite Negative (Negative); Protein, Urine (Dipstick) > or equal to 300 mg/dL (Neg-Trace); Urobilinogen 0.2 mg/dL (0.2-1.0); pH, Urine 5.5 (5.0-9.0)
[2018-01-06 20:03] LABS: Bacteria/HPF 1+ HPF (None Seen); Crystals/HPF 2+ AMORPH PHOS HPF (Negative); Other Casts/LPF 0-3 MIXED CASTS LPF (0-3 Hyaline); RBC/HPF None Seen HPF (0-3)
== END 2018-01-06 20:15 | disposition short-term general hospital (02) ==
LOC: MADERS 16:04
DX: K52.9 Noninfective gastroenteritis and colitis, unspecified (principal); E86.0 Dehydration; I10 Essential (primary) hypertension; Z79.899 Other long term (current) drug therapy
CPT/HCPCS: 36415; 80053; 81003; 81015; 85025; 96361; 96374; 96375; J0360; J2405; J7050

== ENCOUNTER 2018-02-06 15:45 | Outpatient (CLI) | payer MEDICARE, MEDICAID ==
[2018-02-06 16:25] LABS: Anion Gap 19 mmol/L (10-20); BUN (Urea Nitrogen) 54 mg/dL (9.8-20.1); Calc. Creatinine Clearance 0 mL/min (70-130); Calcium 9.8 mg/dL (7.8-10.44); Carbon Dioxide 17 mmol/L (23-31); Chloride 111 mmol/L (98-107); Estimated GFR-MDRD 20; Glucose 92 mg/dL (83-110); Potassium 4.7 mmol/L (3.5-5.1); Sodium 142 mmol/L (136-145)
--- NOTE | 2018-02-06 16:31 | RAD ---
TWO VIEWS LEFT HIP 02/06/18 COMPARISON: None. HISTORY: Acute left sided hip pain, fall two weeks ago. FINDINGS: There is mild superior joint space narrowing. There is mild acetabular osteophyte formation noted lat erally. There is no displaced fracture or evidence of dislocation seen. There is no radiopaque foreig n body or subcutaneous gas. There are vascular calcifications within the imaged thighs medially and w ithin the left hemipelvis. IMPRESSION: Degenerative joint disease. No acute osseous abnormality noted. MRI could better assess the left hip if clinically warranted. POS: [facility]
== END 2018-02-06 15:46 | disposition home or self-care (01) ==
LOC: MADLAB 15:45
PROVIDERS: ATTEND Family Medicine
DX: M25.552 Pain in left hip (principal); I10 Essential (primary) hypertension; E87.6 Hypokalemia; M16.12 Unilateral primary osteoarthritis, left hip; W19.XXXA Unspecified fall, initial encounter
CPT/HCPCS: 36415; 80048

== ENCOUNTER 2018-03-29 18:25 | Emergency (ER) | payer MEDICARE, MEDICAID ==
[2018-03-29] MEDS ORDERED: hydrALAZINE 10 MG TAB ONE (18:56)
[2018-03-29] MEDS ORDERED: hydrALAZINE 20 MG/ML VIAL ONE (18:56)
[2018-03-29] MEDS ORDERED: Acetaminophen 500 MG TAB ONE ×2 (18:56→19:02)
[2018-03-29 19:08] LABS: #Lymphocytes 0.7 thou/uL (1.20-3.40); #Monocytes 0.9 thou/uL (0.11-0.59); #Neutrophils 12.6 thou/uL (1.40-6.50); %Basophils 0.2 % (0.0-1.0); %Monocytes 6.4 % (0.0-10.0); %Neutrophils 88.4 % (42.0-75.0); Hemoglobin 10.5 g/dL (12.0-16.0); Mean Corpuscular HGB CONC 33.2 g/dL (32.0-36.0); Mean Corpuscular Hemoglobin 28.3 pg (27.0-31.0); Mean Corpuscular Volume 85.2 fL (78.0-98.0); Mean Platelet Volume 7.7 fL (7.4-10.4); Platelet Count 165 thou/uL (130-400); RBC Distribution Width 13.8 % (11.5-14.5); Red Blood Cell (RBC) Count 3.71 mill/uL (4.20-5.40); White Blood Cell (WBC) Count 14.3 thou/uL (4.8-10.8)
[2018-03-29 19:19] LABS: Bilirubin Negative (Negative); Blood, Urine Trace (Negative); Clarity Clear (Clear); Glucose, Urine (Dipstick) Negative (Negative); Leukocyte Negative (Negative); Nitrite Negative (Negative); Protein, Urine (Dipstick) > or equal to 300 mg/dL (Neg-Trace); Specific Gravity, Urine 1.025 (1.005-1.030); Urobilinogen 0.2 mg/dL (0.2-1.0); pH, Urine 5.5 (5.0-9.0)
[2018-03-29 19:24] LABS: Bacteria/HPF 1+ HPF (None Seen); RBC/HPF 0-3 HPF (0-3); Squamous Epithelial 0-3 HPF (0-3); Transitional Epithelial 0-3 HPF (0-3); WBC/HPF None Seen HPF (0-3)
[2018-03-29 19:24] LABS: ALT (SGPT) 7 U/L (8-55); AST (SGOT) 10 U/L (5-34); Alkaline Phosphatase 81 U/L (40-150); Anion Gap 18 mmol/L (10-20); BUN (Urea Nitrogen) 24 mg/dL (9.8-20.1); Bilirubin, Total 0.7 mg/dL (0.2-1.2); Calc. Creatinine Clearance 0 mL/min (70-130); Calcium 9.7 mg/dL (7.8-10.44); Carbon Dioxide 19 mmol/L (23-31); Chloride 108 mmol/L (98-107); Estimated GFR-MDRD 43; Globulin 4.1 g/dL (2.4-3.5); Glucose 125 mg/dL (83-110); Potassium 3.5 mmol/L (3.5-5.1); Protein, Total 8.1 g/dL (6.0-8.3); Sodium 141 mmol/L (136-145)
[2018-03-29 19:25] LABS: Crystals/HPF 2+ AMORPH URATES HPF (Negative)
[2018-03-29] MEDS ORDERED: Morphine 4 MG/ML VIAL ONE (19:59)
[2018-03-29] MEDS ORDERED: Fentanyl 100 MCG/2 ML VIAL ONE (20:01)
--- NOTE | 2018-03-29 20:25 | RAD ---
RADIOGRAPH CHEST 1 VIEW: Date: 03/29/18 Time: 7:07 p.m. HISTORY: 78-year-old female with fever. COMPARISON: 01/06/18 and 07/20/17. FINDINGS: Again demonstrated is the old, nonunited fracture at he proximal-mid diaphysis of the left humerus. W here as the fracture fragments were in contact on 07/20/17, they are by at least two shaft w idths on the current study and on 01/06/18. There is a moderate to large right suprahilar mediastinal m ass-like bulge, which appears larger than on 01/06/18 and new since 07/20/17. There is apparent cardiomegaly. Thoracic aorta is ectatic and tortuous, especially the descending tho racic aorta. There is apparently a greater degree of upper lobe pulmonary venous engorgement. No dasha k pulmonary alveolar edema. Slight haziness of the right lateral base is questionable for small right pleural effusion. No consolidation, No pneumothorax. IMPRESSION: 1. Right mediastinal mass-like bulge. Recommend CT of the chest for further evaluation (preferab ly with IV contrast unless contraindicated). 2. Cardiomegaly and mild pulmonary venous congestion without overt congestive heart failure. 3. Questionable small right pleural effusion. 4. Very displaced, nonunited, old left humeral shaft fracture. 5. No definitive evidence of pneumonia. 6. Ectasia and tortuosity of thoracic aorta. LAURA [] POS: [facility]
[2018-03-29] MEDS ORDERED: Amlodipine 5 MG TAB ONE (20:26)
[2018-03-29] MEDS ORDERED: Levofloxacin 500 mg/D5W 100 ml Premix Bag ONE (20:26)
--- NOTE | 2018-03-29 21:45 | CT ---
CT THORAX NONCONTRAST: 03/29/18 HISTORY: 78-year-old female with fever. Right mediastinal mass-like bulge noted on chest radiograph. COMPARISON: No prior chest CTs. FINDINGS: There is herniation of approximately 30 to 50% of the stomach superiorly into the chest. The thoracic aorta is ectatic and tortuous, especially the ascending aorta, which together with what appears to b e a dilated superior vena cava, plus shift of the trachea and upper mediastinum to the right, results in the appearance of a right upper mediastinal mass on the upper shaper view. There is no neoplastic medias tinal or pulmonary tumor mass. No pulmonary edema or consolidation. No pleural effusion or pneumothor ax. Trachea and left and right main stem bronchi are patent and clear. Heavy atherosclerotic calcific ation of LAD. There is severe DJD of the bilateral glenohumeral joints. IMPRESSION: 1. No evidence of neoplastic tumor. The appearance of large right mediastinal mass is due to a c ombination of tortuosity of the ascending aorta, mildly dilated superior vena cava, and mediastinal s hift to the right. 2. Moderate to large hiatal hernia. 3. No acute pulmonary findings. 4. Coronary atherosclerotic disease. 5. Severe shoulder osteoarthrosis of the bilateral glenohumeral joints. LAURA Taylor POS: [facility]
== END 2018-03-29 21:49 | disposition short-term general hospital (02) ==
LOC: MADERS 18:25
DX: A41.9 Sepsis, unspecified organism (principal); R53.1 Weakness; M10.9 Gout, unspecified; I10 Essential (primary) hypertension; K21.9 Gastro-esophageal reflux disease without esophagitis; D64.9 Anemia, unspecified; F41.9 Anxiety disorder, unspecified; Z79.899 Other long term (current) drug therapy
CPT/HCPCS: 36415; 51701; 71045; 71250; 80053; 81003; 81015; 83605; 85025; 87040; 87086; 96361; 96365; 96375; A4353; J0360; J1956; J2270; J3010

== ENCOUNTER 2018-08-28 15:26 | Outpatient (CLI) | payer MEDICARE, MEDICAID ==
[2018-08-28 16:05] LABS: Anion Gap 16 mmol/L (10-20); BUN (Urea Nitrogen) 37 mg/dL (9.8-20.1); Calc. Creatinine Clearance 0 mL/min (70-130); Calcium 9.8 mg/dL (7.8-10.44); Carbon Dioxide 20 mmol/L (23-31); Chloride 112 mmol/L (98-107); Estimated GFR-MDRD 36; Glucose 97 mg/dL (83-110); Potassium 5.4 mmol/L (3.5-5.1); Sodium 143 mmol/L (136-145)
== END 2018-08-28 15:27 | disposition home or self-care (01) ==
LOC: MADLABBHPM 15:26
PROVIDERS: ATTEND Family Medicine
DX: E78.5 Hyperlipidemia, unspecified (principal)
CPT/HCPCS: 36415; 80048

== ENCOUNTER 2019-07-08 09:33 | Outpatient (CLI) | payer MEDICARE, MEDICAID ==
--- NOTE | 2019-07-08 10:25 | ULT ---
EXAM: US Renal Bilateral STANDARD PROVIDED CLINICAL HISTORY: Chronic kidney disease COMPARISON: None FINDINGS: Right kidney measures approximately 7.0 x 2.7 x 6.4 cm and demonstrates no evidence for hydronephrosi s, sonographically apparent calculus or mass. Left kidney measures approximately 8.5 x 4.1 x 2.9 cm and demonstrates no evidence for hydronephrosis , sonographically apparent calculus or mass. Urinary bladder appears sonographically unremarkable. Prevoid bladder volume 253 cc. Post void bladde r volume 100 cc. IMPRESSION: 1. No evidence for hydronephrosis. 2. Post void residual as described.
== END 2019-07-08 09:34 | disposition home or self-care (01) ==
LOC: MADULT 09:33
PROVIDERS: ATTEND Nurse Practitioner
DX: N18.4 Chronic kidney disease, stage 4 (severe) (principal)
CPT/HCPCS: 76770

== ENCOUNTER 2019-09-11 17:58 | Emergency (ER) | payer MEDICARE, MEDICAID ==
[2019-09-11 20:24] LABS: #Monocytes 0.7 thou/uL (0.11-0.59); %Basophils 0.5 % (0.0-1.0); %Lymphocytes 11.8 % (21.0-51.0); %Monocytes 7.8 % (0.0-10.0); %Neutrophils 79.8 % (42.0-75.0); Hemoglobin 9.9 g/dL (12.0-16.0); Mean Corpuscular HGB CONC 32.1 g/dL (32.0-36.0); Mean Corpuscular Volume 87.1 fL (78.0-98.0); Mean Platelet Volume 6.6 fL (7.4-10.4); Platelet Count 183 thou/uL (130-400); RBC Distribution Width 13.2 % (11.5-14.5); Red Blood Cell (RBC) Count 3.55 mill/uL (4.20-5.40); White Blood Cell (WBC) Count 8.7 thou/uL (4.8-10.8)
[2019-09-11 20:28] LABS: ALT (SGPT) 8 U/L (8-55); AST (SGOT) 11 U/L (5-34); Albumin 3.8 g/dL (3.4-4.8); Alkaline Phosphatase 82 U/L (40-110); Anion Gap 15 mmol/L (10-20); BUN (Urea Nitrogen) 41 mg/dL (9.8-20.1); Bilirubin, Total Less than 0.2 mg/dL (0.2-1.2); Calc. Creatinine Clearance 0 mL/min (70-130); Calcium 9.1 mg/dL (7.8-10.44); Carbon Dioxide 20 mmol/L (23-31); Chloride 112 mmol/L (98-107); Estimated GFR-MDRD 23; Globulin 2.9 g/dL (2.4-3.5); Glucose 101 mg/dL (83-110); Potassium 5.2 mmol/L (3.5-5.1); Protein, Total 6.7 g/dL (6.0-8.3); Sodium 142 mmol/L (136-145)
--- NOTE | 2019-09-11 20:46 | RAD ---
CHEST ONE VIEW: 09/11/19 HISTORY: Dyspnea. COMPARISON: Radiograph 03/29/18. FINDINGS: There is nonunion displaced left humeral diaphyseal fracture with foreshortening overriding. Right rotator cuff arthropathy. The aorta is mildly ectatic. Scattered pulmonary nodules in the upper lobes appear relatively similar, likely calcified granulomas. Sliding hiatal hernia. IMPRESSION: No acute intrathoracic abnormality. POS: [facility]
== END 2019-09-11 21:55 | disposition home or self-care (01) ==
LOC: MADERS 17:58
DX: J06.9 Acute upper respiratory infection, unspecified (principal); R06.2 Wheezing; M10.9 Gout, unspecified; I10 Essential (primary) hypertension; K21.9 Gastro-esophageal reflux disease without esophagitis; D64.9 Anemia, unspecified; F41.9 Anxiety disorder, unspecified
CPT/HCPCS: 36415; 71045; 80053; 83605; 85025; 87804; 93005; 96360; J7050; J7620

== ENCOUNTER 2020-01-21 11:22 | Emergency (ER) | payer MEDICARE, MEDICAID ==
--- NOTE | 2020-01-21 12:36 | RAD ---
RADIOGRAPH CHEST 1 VIEW: DATE: 01/21/2020 HISTORY: 79-year-old female with dyspnea COMPARISON: 09/11/2019 FINDINGS: The thoracic aorta is tortuous and ectatic. There is no evidence of airspace density, pulmonary edema , or pneumothorax. The only interval change is greater indistinctness of the lateral aspect of right hemidiaphragm. Again noted is the moderate to large midline retrocardiac opacity. IMPRESSION: 1) No acute pulmonary findings. 2) ectasia of thoracic aorta. 3) questionable small right pleural effusion 4) severe osteoarthrosis of glenohumeral joints of bilateral shoulders, right worse than left. 5) old, displaced, nonunited left humeral mid shaft fracture. 6) moderate to large hiatal hernia
[2020-01-21 12:39] LABS: #Lymphocytes 0.9 thou/uL (1.20-3.40); #Monocytes 0.5 thou/uL (0.11-0.59); #Neutrophils 7.2 thou/uL (1.40-6.50); %Basophils 0.5 % (0.0-1.0); %Monocytes 5.9 % (0.0-10.0); %Neutrophils 83.6 % (42.0-75.0); Hemoglobin 9.8 g/dL (12.0-16.0); Mean Corpuscular HGB CONC 30.6 g/dL (32.0-36.0); Mean Corpuscular Hemoglobin 27.3 pg (27.0-31.0); Mean Corpuscular Volume 89.1 fL (78.0-98.0); Mean Platelet Volume 6.2 fL (7.4-10.4); Platelet Count 171 thou/uL (130-400); RBC Distribution Width 13.2 % (11.5-14.5); Red Blood Cell (RBC) Count 3.58 mill/uL (4.20-5.40); White Blood Cell (WBC) Count 8.6 thou/uL (4.8-10.8)
[2020-01-21 12:54] LABS: ALT (SGPT) 8 U/L (8-55); AST (SGOT) 10 U/L (5-34); Alkaline Phosphatase 82 U/L (40-110); Anion Gap 17 mmol/L (10-20); BUN (Urea Nitrogen) 41 mg/dL (9.8-20.1); Bilirubin, Total 0.2 mg/dL (0.2-1.2); Calc. Creatinine Clearance 0 mL/min (70-130); Carbon Dioxide 18 mmol/L (23-31); Chloride 113 mmol/L (98-107); Estimated GFR-MDRD 25; Globulin 3.1 g/dL (2.4-3.5); Glucose 135 mg/dL (83-110); Lipase 54 U/L (8-78); Potassium 4.7 mmol/L (3.5-5.1); Protein, Total 7.1 g/dL (6.0-8.3); Sodium 143 mmol/L (136-145)
[2020-01-21 13:08] LABS: Bilirubin Negative (Negative); Blood, Urine Negative (Negative); Clarity Clear (Clear); Glucose, Urine (Dipstick) Negative (Negative); Ketone, Urine Negative (Negative); Leukocyte Trace (Negative); Nitrite Negative (Negative); Protein, Urine (Dipstick) > or equal to 300 mg/dL (Neg-Trace); Urobilinogen 0.2 mg/dL (Less than 2)
[2020-01-21 13:10] LABS: Bacteria/HPF Rare-Few HPF (None Seen); RBC/HPF 0-3 HPF (0-3); Squamous Epithelial 0-3 HPF (0-3); WBC/HPF 0-3 HPF (0-3)
[2020-01-21] MEDS ORDERED: Sodium Chloride 0.9% 1,000 ML ONE (13:43)
== END 2020-01-21 15:50 | disposition home or self-care (01) ==
LOC: MADERS 11:22
DX: E86.0 Dehydration (principal); I10 Essential (primary) hypertension; K21.9 Gastro-esophageal reflux disease without esophagitis; F41.9 Anxiety disorder, unspecified; Z79.899 Other long term (current) drug therapy
CPT/HCPCS: 36415; 71045; 80053; 81003; 81015; 83690; 83880; 84484; 85025; 93005; 96360; J7050

== ENCOUNTER 2020-01-23 11:21 | Outpatient (CLI) | payer MEDICARE, MEDICAID ==
[2020-01-23 11:50] LABS: Anion Gap 15 mmol/L (10-20); BUN (Urea Nitrogen) 34 mg/dL (9.8-20.1); Calc. Creatinine Clearance 0 mL/min (70-130); Carbon Dioxide 19 mmol/L (23-31); Chloride 112 mmol/L (98-107); Estimated GFR-MDRD 25; Glucose 108 mg/dL (83-110); Potassium 4.5 mmol/L (3.5-5.1); Sodium 141 mmol/L (136-145)
== END 2020-01-23 11:22 | disposition home or self-care (01) ==
LOC: MADLAB 11:21
PROVIDERS: ATTEND Family Medicine
DX: E86.0 Dehydration (principal)
CPT/HCPCS: 36415; 80048

== ENCOUNTER 2020-05-31 15:43 | Emergency (ER) | payer MEDICARE, MEDICAID ==
[~2020-05-31 15:43] MED LIST changes: +Sodium Chloride 0.9% 1,000 ML BAG ONE; -Sodium Chloride 0.9% 500 ML BAG ONE
[2020-05-31] MEDS ORDERED: Ondansetron PF 4 MG/2 ML Vial ONE (16:38)
[2020-05-31 17:08] LABS: #Basophils 0.1 thou/uL (0.0-0.2); #Lymphocytes 0.6 thou/uL (1.20-3.40); #Monocytes 0.4 thou/uL (0.11-0.59); #Neutrophils 9.8 thou/uL (1.40-6.50); %Basophils 0.5 % (0.0-1.0); %Lymphocytes 5.5 % (21.0-51.0); Hemoglobin 11.4 g/dL (12.0-16.0); Mean Corpuscular HGB CONC 31.5 g/dL (32.0-36.0); Mean Corpuscular Hemoglobin 27.8 pg (27.0-31.0); Mean Corpuscular Volume 88.2 fL (78.0-98.0); Mean Platelet Volume 6.6 fL (7.4-10.4); Platelet Count 189 thou/uL (130-400); RBC Distribution Width 13.4 % (11.5-14.5); Red Blood Cell (RBC) Count 4.11 mill/uL (4.20-5.40); White Blood Cell (WBC) Count 10.9 thou/uL (4.8-10.8)
--- NOTE | 2020-05-31 17:18 | RAD ---
EXAM: CHEST ONE VIEW HISTORY: Dyspnea, vomiting. COMPARISON: 01/21/2020 FINDINGS: Thoracic aorta remains tortuous and ectatic. Cardiac silhouette is magnified by projection but stable in size. Calcified right mediastinal lymph node is seen. Linear scarring is present in the right midlung zone and left lung base. There is mild eventration of a portion of the right hemidiaphragm si milar to prior exam. Lungs are otherwise clear. Severe bilateral glenohumeral osteoarthropathy is present. Osteopenia is again seen. A nonunion displaced fracture mid diaphysis left humerus is again seen. Increased density retrocardiac region midline lower chest is again seen related to moderately large hiatal hernia seen on prior CT thorax in 2018. IMPRESSION: 1. No acute cardiopulmonary process. 2. Hiatal hernia. 3. Chest is overall similar to prior exam.
[2020-05-31 17:23] LABS: Carbon Dioxide 17 mmol/L (23-31); Chloride 109 mmol/L (98-107); Potassium 5.4 mmol/L (3.5-5.1); Sodium 141 mmol/L (136-145)
[2020-05-31 17:24] LABS: ALT (SGPT) 8 U/L (8-55); AST (SGOT) 12 U/L (5-34); Albumin 4.3 g/dL (3.4-4.8); Alkaline Phosphatase 86 U/L (40-110); Anion Gap 20 mmol/L (10-20); BUN (Urea Nitrogen) 46 mg/dL (9.8-20.1); Bilirubin, Total 0.2 mg/dL (0.2-1.2); CK (CPK) 80 U/L (29-168); Calc. Creatinine Clearance 0 mL/min (70-130); Calcium 9.4 mg/dL (7.8-10.44); Globulin 2.8 g/dL (2.4-3.5); Glucose 164 mg/dL (83-110); Lipase 48 U/L (8-78); Protein, Total 7.1 g/dL (6.0-8.3)
--- NOTE | 2020-05-31 18:13 | CT ---
CT OF THE ABDOMEN AND PELVIS WITHOUT IV CONTRAST INDICATION: Constipation and vomiting COMPARISON: None FINDINGS: The lack of IV contrast limits evaluation of the solid organs of the abdomen and pelvis. ABDOMEN: Motion artifact limits image detail. Lung bases: Large hiatal hernia and bibasilar atelectasis Liver: No focal lesion. Gallbladder: Normal appearing. Pancreas: Normal. Adrenal glands: Normal. Spleen: Normal. Kidneys and ureters: Normal. No hydronephrosis. Vasculature: There are moderate vascular calcifications seen involving the visualized vasculature. Lymph nodes:No lymphadenopathy. Free fluid in abdomen:No free fluid is evident. PELVIS: Small and large bowel: There is a prominent amount retained stool within the rectum and colon. The sm all bowel is of normal caliber. Appendix:Not definitely seen Bladder: Normal. Rectal and perirectal soft tissues:Normal. Reproductive structures: Not seen and presumed to be surgically absent Free fluid in pelvis: No free fluid is evident. Lymphadenopathy pelvis: No lymphadenopathy is evident. Osseous structures: There is diffuse osteopenia. There is grade 1 anterolisthesis of L4 on L5 and L5 on S1 which is likely degenerative. There is scattered degenerative and osteoarthritic changes. Soft tissues:There is a stable subcutaneous lipoma overlying the right posterior lateral chest wall m easuring 8.8 cm. IMPRESSION: 1. Prominent amount of retained stool within the colon and rectum. 2. No additional acute abnormality. 3. Large hiatal hernia.
[2020-05-31 19:02] LABS: Bilirubin Negative (Negative); Blood, Urine Negative (Negative); Clarity Clear (Clear); Glucose, Urine (Dipstick) Negative (Negative); Ketone, Urine Negative (Negative); Leukocyte Negative (Negative); Nitrite Negative (Negative); Protein, Urine (Dipstick) > or equal to 300 mg/dL (Neg-Trace); Urobilinogen 0.2 mg/dL (Less than 2)
[2020-05-31] MEDS ORDERED: Fleet Enema 133 ML BOT ONE (19:05)
[2020-05-31 19:14] LABS: Bacteria/HPF Rare-Few HPF (None Seen); RBC/HPF 0-3 HPF (0-3); Renal Epithelial 0-3 HPF (None Seen); Squamous Epithelial 0-3 HPF (0-3); WBC/HPF 0-3 HPF (0-3)
[2020-05-31 19:29] LABS: Anion Gap 19 mmol/L (10-20); BUN (Urea Nitrogen) 47 mg/dL (9.8-20.1); Calc. Creatinine Clearance 0 mL/min (70-130); Calcium 8.8 mg/dL (7.8-10.44); Carbon Dioxide 18 mmol/L (23-31); Chloride 112 mmol/L (98-107); Glucose 134 mg/dL (83-110); Potassium 5.5 mmol/L (3.5-5.1); Sodium 143 mmol/L (136-145)
[2020-05-31] MEDS ORDERED: Vancomycin HCl 750 MG VIAL ONE (19:46)
[2020-05-31] MEDS ORDERED: Insulin Regular 300 UNITS/3 ML VIAL ONE (19:46)
[2020-05-31] MEDS ORDERED: Dextrose 50% Abboject 50 ML SYRINGE ONE (19:46)
[2020-05-31] MEDS ORDERED: Sodium Chloride 0.9% 100 ML ONE (19:46)
[2020-05-31] MEDS ORDERED: Cefepime 2 GM VIAL ONE (19:46)
[2020-05-31] MEDS ORDERED: Albuterol Sulfate 2.5 mg/3 ml Neb ONE (19:46)
[2020-05-31] MEDS ORDERED: Sodium Chloride 0.9% 250 ML 250 ML ONE (19:48)
[2020-05-31] MEDS ORDERED: Albuterol Sulfate 2.5 mg/0.5 ml Neb ONE (19:56)
[2020-05-31] MEDS ORDERED: Enoxaparin Sodium 60 MG/0.6 ML SYRINGE ONE (19:59)
[2020-05-31 21:13] LABS: Acetaminophen Less than 6.0 mcg/mL (10.0-30.0); Alcohol Less than 10 mg/dL (Less than 10); Salicylate Less than 8.0 mg/dL (15.0-30.0)
[2020-05-31 21:30] LABS: Amphetamine Not Detected (NotDetected); Barbiturates Screen Not Detected (NotDetected); Benzodiazepine Screen Not Detected (NotDetected); Cocaine Metabolite Screen Not Detected (NotDetected); Medtox Control Line Valid? VALID (VALID); Methadone Not Detected (NotDetected); Methamphetamine Not Detected (NotDetected); Opiate Screen Not Detected (NotDetected); Oxycodone Screen Not Detected (NotDetected); Phencyclidine (PCP) Not Detected (NotDetected); THC/Cannabinoid Screen Not Detected (NotDetected); Tricyclic Screen Detected (NotDetected)
== END 2020-05-31 22:37 | disposition left against medical advice (07) ==
LOC: MADERS 15:43
DX: E87.5 Hyperkalemia (principal); R00.0 Tachycardia, unspecified; K21.9 Gastro-esophageal reflux disease without esophagitis; D64.9 Anemia, unspecified; I10 Essential (primary) hypertension; Z79.899 Other long term (current) drug therapy; Z79.51 Long term (current) use of inhaled steroids
CPT/HCPCS: 36415; 51701; 71045; 74176; 80053; 80306; 80307; 81003; 81015; 82274; 82550; 83605; 83690; 84443; 84484; 85025; 93005; 96365; 96367; 96372; 96375; J0692; J1650; J1815; J2405; J3370; J3490; J7050; J7611

== ENCOUNTER 2020-11-13 09:22 | Emergency (ER) | payer MEDICARE, MEDICAID | END 2020-11-13 10:19 | disposition home or self-care (01) | LOC: MADERS 09:22 | DX: M10.9 Gout, unspecified (principal); I10 Essential (primary) hypertension; K21.9 Gastro-esophageal reflux disease without esophagitis; D64.9 Anemia, unspecified; Z79.899 Other long term (current) drug therapy | CPT/HCPCS: 99283 ==

== ENCOUNTER 2020-12-03 07:46 | Outpatient (CLI) | payer MEDICARE, MEDICAID ==
[2020-12-03 08:45] LABS: #Lymphocytes 0.8 thou/uL (1.20-3.40); #Monocytes 0.5 thou/uL (0.11-0.59); %Basophils 0.4 % (0.0-1.0); %Lymphocytes 9.2 % (21.0-51.0); %Monocytes 6.1 % (0.0-10.0); %Neutrophils 84.4 % (42.0-75.0); Hemoglobin 7.5 g/dL (12.0-16.0); Mean Corpuscular HGB CONC 30.5 g/dL (32.0-36.0); Mean Corpuscular Volume 88.7 fL (78.0-98.0); Mean Platelet Volume 8.1 fL (7.4-10.4); Platelet Count 165 thou/uL (130-400); RBC Distribution Width 15.5 % (11.5-14.5); Red Blood Cell (RBC) Count 2.78 mill/uL (4.20-5.40); White Blood Cell (WBC) Count 8.3 thou/uL (4.8-10.8)
[2020-12-03 08:47] LABS: ALT (SGPT) 7 U/L (8-55); AST (SGOT) 9 U/L (5-34); Albumin 3.7 g/dL (3.4-4.8); Alkaline Phosphatase 70 U/L (40-110); Anion Gap 19 mmol/L (10-20); BUN (Urea Nitrogen) 61 mg/dL (9.8-20.1); Bilirubin, Total 0.2 mg/dL (0.2-1.2); Calc. Creatinine Clearance 0 mL/min (70-130); Carbon Dioxide 16 mmol/L (23-31); Chloride 112 mmol/L (98-107); Globulin 3.4 g/dL (2.4-3.5); Glucose 92 mg/dL (83-110); Potassium 4.8 mmol/L (3.5-5.1); Protein, Total 7.1 g/dL (5.8-8.1); Sodium 142 mmol/L (136-145); Uric Acid 5.7 mg/dL (2.6-6.0)
== END 2020-12-03 07:47 | disposition home or self-care (01) ==
LOC: MADLAB 07:46
PROVIDERS: ATTEND Family Medicine
DX: I12.9 Hypertensive chronic kidney disease with stage 1 through stage 4 chronic kidney disease, or unspecified chronic kidney disease (principal); N18.9 Chronic kidney disease, unspecified; D63.1 Anemia in chronic kidney disease; E79.0 Hyperuricemia without signs of inflammatory arthritis and tophaceous disease
CPT/HCPCS: 36415; 80053; 84550; 85025

== ENCOUNTER 2021-01-07 15:01 | Outpatient (CLI) | payer MEDICARE, MEDICAID ==
[2021-01-07 15:38] LABS: #Basophils 0.1 thou/uL (0.0-0.2); #Monocytes 0.6 thou/uL (0.11-0.59); %Basophils 0.7 % (0.0-1.0); %Lymphocytes 11.7 % (21.0-51.0); %Monocytes 7.2 % (0.0-10.0); %Neutrophils 80.5 % (42.0-75.0); Hemoglobin 8.9 g/dL (12.0-16.0); Mean Corpuscular HGB CONC 31.1 g/dL (32.0-36.0); Mean Corpuscular Hemoglobin 27.7 pg (27.0-31.0); Mean Corpuscular Volume 89.1 fL (78.0-98.0); Mean Platelet Volume 6.6 fL (7.4-10.4); Platelet Count 183 thou/uL (130-400); RBC Distribution Width 16.1 % (11.5-14.5); Red Blood Cell (RBC) Count 3.23 mill/uL (4.20-5.40); White Blood Cell (WBC) Count 8.7 thou/uL (4.8-10.8)
[2021-01-07 16:40] LABS: ALT (SGPT) Less than 7 U/L (8-55); AST (SGOT) 12 U/L (5-34); Albumin 4.2 g/dL (3.4-4.8); Alkaline Phosphatase 90 U/L (40-110); Anion Gap 19 mmol/L (10-20); BUN (Urea Nitrogen) 46 mg/dL (9.8-20.1); Bilirubin, Total 0.3 mg/dL (0.2-1.2); Calc. Creatinine Clearance 0 mL/min (70-130); Calcium 8.9 mg/dL (7.8-10.44); Carbon Dioxide 16 mmol/L (23-31); Chloride 113 mmol/L (98-107); Globulin 3.1 g/dL (2.4-3.5); Glucose 98 mg/dL (83-110); Potassium 4.6 mmol/L (3.5-5.1); Protein, Total 7.3 g/dL (5.8-8.1); Sodium 143 mmol/L (136-145)
== END 2021-01-07 15:02 | disposition home or self-care (01) ==
LOC: MADLAB 15:01
PROVIDERS: ATTEND Family Medicine
DX: I13.10 Hypertensive heart and chronic kidney disease without heart failure, with stage 1 through stage 4 chronic kidney disease, or unspecified chronic kidney disease (principal); N18.9 Chronic kidney disease, unspecified; D63.1 Anemia in chronic kidney disease
CPT/HCPCS: 36415; 80053; 82728; 85025

== ENCOUNTER 2021-02-10 11:42 | Outpatient (CLI) | payer MEDICARE, MEDICAID ==
[2021-02-10 12:32] LABS: Anion Gap 19 mmol/L (10-20); BUN (Urea Nitrogen) 45 mg/dL (9.8-20.1); Calc. Creatinine Clearance 0 mL/min (70-130); Calcium 9.2 mg/dL (7.8-10.44); Carbon Dioxide 15 mmol/L (23-31); Chloride 111 mmol/L (98-107); Glucose 103 mg/dL (83-110); Potassium 4.3 mmol/L (3.5-5.1); Sodium 141 mmol/L (136-145)
== END 2021-02-10 11:43 | disposition home or self-care (01) ==
LOC: MADLAB 11:42
PROVIDERS: ATTEND Family Medicine
DX: M79.604 Pain in right leg (principal)
CPT/HCPCS: 36415; 80048

== ENCOUNTER 2021-10-23 13:21 | Emergency (ER) | payer MEDICARE, MEDICAID ==
[2021-10-23] MEDS ORDERED: Magnesium Citrate 300 ML BOT ONE (13:52)
[2021-10-23] MEDS ORDERED: Bisacodyl 10 MG SUPP ONE (13:52)
[2021-10-23 15:28] LABS: #Basophils 0.1 thou/uL (0.0-0.2); #Lymphocytes 1.3 thou/uL (1.20-3.40); #Monocytes 0.5 thou/uL (0.11-0.59); #Neutrophils 8.6 thou/uL (1.40-6.50); %Basophils 0.6 % (0.0-1.0); %Lymphocytes 12.2 % (21.0-51.0); %Monocytes 4.8 % (0.0-10.0); %Neutrophils 82.3 % (42.0-75.0); Hemoglobin 10.2 g/dL (12.0-16.0); Mean Corpuscular HGB CONC 31.8 g/dL (32.0-36.0); Mean Corpuscular Hemoglobin 29.4 pg (27.0-31.0); Mean Corpuscular Volume 92.6 fL (78.0-98.0); Mean Platelet Volume 6.9 fL (7.4-10.4); Platelet Count 262 thou/uL (130-400); RBC Distribution Width 16.8 % (11.5-14.5); Red Blood Cell (RBC) Count 3.46 mill/uL (4.20-5.40); White Blood Cell (WBC) Count 10.4 thou/uL (4.8-10.8)
[2021-10-23 16:04] LABS: ALT (SGPT) Less than 7 U/L (8-55); AST (SGOT) 8 U/L (5-34); Albumin 3.9 g/dL (3.4-4.8); Alkaline Phosphatase 87 U/L (40-110); Anion Gap 18 mmol/L (10-20); BUN (Urea Nitrogen) 51 mg/dL (9.8-20.1); Bilirubin, Total 0.2 mg/dL (0.2-1.2); Calc. Creatinine Clearance 0 mL/min (70-130); Calcium 8.9 mg/dL (7.8-10.44); Carbon Dioxide 17 mmol/L (23-31); Chloride 110 mmol/L (98-107); Globulin 2.9 g/dL (2.4-3.5); Glucose 115 mg/dL (83-110); Potassium 4.5 mmol/L (3.5-5.1); Protein, Total 6.8 g/dL (5.8-8.1); Sodium 140 mmol/L (136-145)
[2021-10-23 16:05] LABS: Acetaminophen Less than 10.0 mcg/mL (10.0-30.0); Alcohol Less than 10 mg/dL (Less than 10); CK (CPK) 40 U/L (29-168); Magnesium 2.5 mg/dL (1.6-2.6); Salicylate Less than 8.0 mg/dL (15.0-30.0)
[2021-10-23 16:10] LABS: Lipase 61 U/L (8-78)
== END 2021-10-23 19:45 | disposition home or self-care (01) ==
LOC: MADERS 13:21
DX: K59.00 Constipation, unspecified (principal); I12.9 Hypertensive chronic kidney disease with stage 1 through stage 4 chronic kidney disease, or unspecified chronic kidney disease; N18.9 Chronic kidney disease, unspecified; E05.90 Thyrotoxicosis, unspecified without thyrotoxic crisis or storm; I45.81 Long QT syndrome; K21.9 Gastro-esophageal reflux disease without esophagitis; D64.9 Anemia, unspecified; M10.9 Gout, unspecified; Z79.899 Other long term (current) drug therapy
CPT/HCPCS: 80053; 80307; 82274; 82550; 83605; 83690; 83735; 84443; 84484; 85025; 93005; 94760; J7050

== ENCOUNTER 2022-05-07 10:07 | Emergency (ER) | payer MEDICARE, MEDICAID ==
[2022-05-07 11:16] LABS: #Lymphocytes 0.8 thou/uL (1.20-3.40); #Monocytes 0.4 thou/uL (0.11-0.59); #Neutrophils 9.9 thou/uL (1.40-6.50); %Basophils 0.4 % (0.0-1.0); %Lymphocytes 6.9 % (21.0-51.0); %Monocytes 3.4 % (0.0-10.0); %Neutrophils 89.2 % (42.0-75.0); Mean Corpuscular HGB CONC 32.2 g/dL (32.0-36.0); Mean Corpuscular Hemoglobin 30.1 pg (27.0-31.0); Mean Corpuscular Volume 93.3 fl (78.0-98.0); Mean Platelet Volume 5.4 fL (7.4-10.4); Platelet Count 203 thou/uL (130-400); RBC Distribution Width 15.7 % (11.5-14.5); Red Blood Cell (RBC) Count 2.98 mill/uL (4.20-5.40); White Blood Cell (WBC) Count 11.1 thou/uL (4.8-10.8)
[2022-05-07 11:36] LABS: ALT (SGPT) Less than 7 U/L (8-55); AST (SGOT) 11 U/L (5-34); Albumin 3.9 g/dL (3.4-4.8); Alkaline Phosphatase 88 U/L (40-110); Anion Gap 20 mmol/L (10-20); BUN (Urea Nitrogen) 66 mg/dL (9.8-20.1); Bilirubin, Total 0.3 mg/dL (0.2-1.2); CK (CPK) 36 U/L (29-168); Calc. Creatinine Clearance 0 mL/min (70-130); Calcium 9.9 mg/dL (7.8-10.44); Carbon Dioxide 17 mmol/L (23-31); Chloride 106 mmol/L (98-107); Estimated GFR 6; Glucose 138 mg/dL (83-110); Lipase 48 U/L (8-78); Magnesium 2.6 mg/dL (1.6-2.6); Potassium 5.6 mmol/L (3.5-5.1); Protein, Total 7.9 g/dL (5.8-8.1); Sodium 137 mmol/L (136-145)
[2022-05-07] MEDS ORDERED: Hydrochlorothiazide 25 MG TAB ONE (11:49)
[2022-05-07] MEDS ORDERED: hydrALAZINE 10 MG TAB ONE (11:49)
[2022-05-07] MEDS ORDERED: Nicotine 7 MG PATCH ONE (11:49)
[2022-05-07 14:11] LABS: Bilirubin Negative (Negative); Blood, Urine Moderate (Negative); Clarity Hazy (Clear); Glucose, Urine (Dipstick) Negative (Negative); Ketone, Urine Negative (Negative); Leukocyte Trace (Negative); Nitrite Negative (Negative); Protein, Urine (Dipstick) 100 mg/dL (Neg-Trace); Specific Gravity, Urine 1.015 (1.005-1.030); Urobilinogen 0.2 mg/dL (Less than 2); pH, Urine 6.5 (5.0-9.0)
[2022-05-07 14:18] LABS: Bacteria/HPF 2+ HPF (None Seen); RBC/HPF 0-3 HPF (0-3); Squamous Epithelial 0-3 HPF (0-3); WBC/HPF 0-3 HPF (0-3)
[2022-05-07 14:49] LABS: INR-International Normal Ratio 1.1; Prothrombin Time 14.3 sec (12.0-14.7)
[2022-05-07 14:50] LABS: PTT 50.7 sec (22.9-36.1)
[2022-05-07 14:54] LABS: Anion Gap 18 mmol/L (10-20); BUN (Urea Nitrogen) 62 mg/dL (9.8-20.1); Calc. Creatinine Clearance 0 mL/min (70-130); Calcium 9.4 mg/dL (7.8-10.44); Carbon Dioxide 17 mmol/L (23-31); Chloride 109 mmol/L (98-107); Estimated GFR 7; Glucose 101 mg/dL (83-110); Sodium 138 mmol/L (136-145)
[2022-05-07] MEDS ORDERED: Calcium Gluc 4.6 MEQ/10 ML (100 MG/ML) ONE (15:42)
[2022-05-07] MEDS ORDERED: SUMAtriptan Succinate 6 MG/0.5 ML VIAL ONE (15:55)
[2022-05-07] MEDS ORDERED: Sodium Bicarb 50 MEQ/50 ML Abboject 8.4% SYRINGE ONE (15:56)
[2022-05-07] MEDS ORDERED: Albuterol Sulfate 2.5 mg/0.5 ml Neb ONE (15:56)
[2022-05-07] MEDS ORDERED: Dextrose 50% Abboject 50 ML SYRINGE ONE (15:56)
[2022-05-07] MEDS ORDERED: Insulin Regular 300 UNITS/3 ML VIAL ONE (15:56)
[2022-05-07] MEDS ORDERED: Octreotide Acetate 100 MCG/ML VIAL ONE (16:00)
[2022-05-07] MEDS ORDERED: Lactated Ringer's 1,000 ML ONE (16:01)
[2022-05-07] MEDS ORDERED: Sodium Chloride 0.9% 1,000 ML ONE (16:01)
[2022-05-07] MEDS ORDERED: Amlodipine 5 MG TAB ONE (16:02)
[2022-05-07] MEDS ORDERED: Furosemide 40 MG TAB ONE (16:03)
== END 2022-05-07 16:40 | disposition home or self-care (01) ==
LOC: MADERS 10:07
DX: K56.41 Fecal impaction (principal); E87.5 Hyperkalemia; I12.9 Hypertensive chronic kidney disease with stage 1 through stage 4 chronic kidney disease, or unspecified chronic kidney disease; N18.9 Chronic kidney disease, unspecified; D64.9 Anemia, unspecified; E87.20 Acidosis, unspecified; K21.9 Gastro-esophageal reflux disease without esophagitis; Z79.899 Other long term (current) drug therapy
CPT/HCPCS: 71045; 80048; 82550; 83605; 83690; 83735; 84484; 85610; 85730; 87086; 93005; 94760; J0610; 36415; 80053; 81003; 81015; 84443; 85025; 96361; 96365; 96375; J1815; J2354; J3030; J7030; J7120; J7611; J7999

== ENCOUNTER 2022-08-24 08:54 | Emergency (ER) | payer MEDICARE, MEDICAID ==
[~2022-08-24 08:54] MED LIST changes: -Sodium Chloride 0.9% 1,000 ML BAG ONE; +Sodium Chloride 0.9% 500 ML BAG ONE
[2022-08-24] MEDS ORDERED: Ondansetron PF 4 MG/2 ML Vial ONE (09:12)
[2022-08-24 09:35] LABS: #Basophils 0.1 thou/uL (0.0-0.2); #Lymphocytes 1.4 thou/uL (1.20-3.40); #Monocytes 0.6 thou/uL (0.11-0.59); #Neutrophils 7.7 thou/uL (1.40-6.50); %Basophils 0.7 % (0.0-1.0); %Lymphocytes 13.9 % (21.0-51.0); %Neutrophils 79.4 % (42.0-75.0); Hemoglobin 6.8 g/dL (12.0-16.0); Mean Corpuscular HGB CONC 32.9 g/dL (32.0-36.0); Mean Corpuscular Hemoglobin 29.5 pg (27.0-31.0); Mean Corpuscular Volume 89.5 fl (78.0-98.0); Mean Platelet Volume 5.8 fL (7.4-10.4); Platelet Count 264 10x3/uL (130-400); RBC Distribution Width 18.9 % (11.5-14.5); Red Blood Cell (RBC) Count 2.32 mill/uL (4.20-5.40); White Blood Cell (WBC) Count 9.6 10x3/uL (4.8-10.8)
[2022-08-24 09:38] LABS: Anisocytosis SLIGHT = 6-15 cells (100X) (0-5/hpf); Platelet Morphology Comment Appears Adequate
[2022-08-24 09:48] LABS: ALT (SGPT) Less than 7 U/L (8-55); AST (SGOT) 14 U/L (5-34); Albumin 3.9 g/dL (3.4-4.8); Alkaline Phosphatase 75 U/L (40-110); Anion Gap 21 mmol/L (10-20); BUN (Urea Nitrogen) 64 mg/dL (9.8-20.1); Bilirubin, Total Less than 0.2 mg/dL (0.2-1.2); Calc. Creatinine Clearance 0 mL/min (70-130); Calcium 9.4 mg/dL (7.8-10.44); Carbon Dioxide 18 mmol/L (23-31); Chloride 110 mmol/L (98-107); Estimated GFR 5; Globulin 3.7 g/dL (2.4-3.5); Glucose 149 mg/dL (83-110); Potassium 4.8 mmol/L (3.5-5.1); Protein, Total 7.6 g/dL (5.8-8.1); Sodium 144 mmol/L (136-145)
== END 2022-08-24 10:42 | disposition left against medical advice (07) ==
LOC: MADERS 08:54
DX: T18.108A Unspecified foreign body in esophagus causing other injury, initial encounter (principal); N17.9 Acute kidney failure, unspecified; D64.9 Anemia, unspecified; Z53.1 Procedure and treatment not carried out because of patient's decision for reasons of belief and group pressure; I10 Essential (primary) hypertension; K21.9 Gastro-esophageal reflux disease without esophagitis
CPT/HCPCS: 71045; 80053; 85025; 96361; 96374; 96375; J1611; J2405; J7030

== ENCOUNTER 2023-02-13 14:24 | Emergency (ER) | payer MEDICARE, MEDICAID ==
[~2023-02-13 14:24] MED LIST changes: +Sodium Chloride 0.9% 100 ML BAG ONE; -Sodium Chloride 0.9% 500 ML BAG ONE
[2023-02-13] MEDS ORDERED: Calcium Gluc 4.6 MEQ/10 ML (100 MG/ML) ONE (15:12)
[2023-02-13 15:25] LABS: #Basophils 0.1 thou/uL (0.0-0.2); #Lymphocytes 1.2 thou/uL (1.20-3.40); #Monocytes 0.5 thou/uL (0.11-0.59); #Neutrophils 7.4 thou/uL (1.40-6.50); %Basophils 0.7 % (0.0-1.0); %Lymphocytes 13.3 % (21.0-51.0); %Monocytes 5.6 % (0.0-10.0); %Neutrophils 80.4 % (42.0-75.0); Hematocrit 27.5 % (36.0-47.0); Hemoglobin 9.2 g/dL (12.0-16.0); Mean Corpuscular HGB CONC 33.4 g/dL (32.0-36.0); Mean Corpuscular Hemoglobin 28.8 pg (27.0-31.0); Mean Corpuscular Volume 86.2 fl (78.0-98.0); Mean Platelet Volume 8.6 fL (7.4-10.4); Platelet Count 184 10x3/uL (130-400); RBC Distribution Width 17.1 % (11.5-14.5); Red Blood Cell (RBC) Count 3.19 mill/uL (4.20-5.40); White Blood Cell (WBC) Count 9.2 10x3/uL (4.8-10.8)
[2023-02-13 15:54] LABS: Troponin I 0.047 ng/mL (< 0.028)
[2023-02-13 15:55] LABS: ALT (SGPT) Less than 7 U/L (8-55); AST (SGOT) 7 U/L (5-34); Albumin 4.1 g/dL (3.4-4.8); Alkaline Phosphatase 62 U/L (40-110); Anion Gap 18 mmol/L (10-20); BUN (Urea Nitrogen) 80 mg/dL (9.8-20.1); Bilirubin, Total 0.4 mg/dL (0.2-1.2); Calc. Creatinine Clearance 0 mL/min (70-130); Calcium 9.8 mg/dL (7.8-10.44); Carbon Dioxide 17 mmol/L (23-31); Chloride 107 mmol/L (98-107); Estimated GFR 6; Globulin 2.9 g/dL (2.4-3.5); Glucose 108 mg/dL (83-110); Magnesium 2.3 mg/dL (1.6-2.6); Sodium 134 mmol/L (136-145)
[2023-02-13] MEDS ORDERED: Insulin Regular 300 UNITS/3 ML VIAL ONE (16:04)
[2023-02-13] MEDS ORDERED: Dextrose 50% Abboject 50 ML SYRINGE ONE (16:04)
[2023-02-13 16:10] LABS: Bilirubin Negative (Negative); Blood, Urine Trace (Negative); Glucose, Urine (Dipstick) Negative (Negative); Ketone, Urine Negative (Negative); Leukocyte Small (Negative); Nitrite Negative (Negative); Protein, Urine (Dipstick) > or equal to 300 mg/dL (Neg-Trace); Urobilinogen 0.2 mg/dL (Less than 2)
[2023-02-13 16:11] LABS: Clarity Clear (Clear)
[2023-02-13 16:17] LABS: Bacteria/HPF 1+ HPF (None Seen); CAUTI Indications for Culture Dysuria,urgency,freq; RBC/HPF 0-3 HPF (0-3); Squamous Epithelial 0-3 HPF (0-3); Yeast-Budding 1+ HPF (None Seen)
[2023-02-13 16:18] LABS: Urine Culture Reflex No No
[2023-02-13] MEDS ORDERED: Fluconazole 100 MG TAB ONE (16:48)
[2023-02-13] MEDS ORDERED: Aspirin 325 MG TAB ONE (16:48)
[2023-02-13 16:59] LABS: Bicarbonate (HCO3v) 17.2 mmol/L (22.0-28.0); CO2 Tension (PvCO2) 33.2 mmHg (42.0-51.0); Calcium, Ionized 1.22 mmol/L (1.15-1.33); Chloride 112 mmol/L (98-107); Hemoglobin - Calc 9.4 g/dL (12.0-16.0); Potassium 7.2 mmol/L (3.5-5.1); Sodium 134 mmol/L (138-145); T. Carbon Dioxide 18.3 mmol/L (22.0-28.0); vO2 Saturation-calc 99.4 % (60.0-85.0)
[2023-02-13] MEDS ORDERED: Dextrose 5% in Water 1,000 ML ONE (17:19)
[2023-02-13] MEDS ORDERED: Sodium Bicarb 50 MEQ/50 ML Abboject 8.4% SYRINGE ONE (17:19)
[2023-02-13] MEDS ORDERED: Sodium Bicarb 50 MEQ/50 ML VIAL ONE (17:21)
== END 2023-02-13 18:35 | disposition short-term general hospital (02) ==
LOC: MADERS 14:24
DX: E87.5 Hyperkalemia (principal); I12.9 Hypertensive chronic kidney disease with stage 1 through stage 4 chronic kidney disease, or unspecified chronic kidney disease; N18.9 Chronic kidney disease, unspecified; R77.8 Other specified abnormalities of plasma proteins; I10 Essential (primary) hypertension; D64.9 Anemia, unspecified; M10.9 Gout, unspecified; K21.9 Gastro-esophageal reflux disease without esophagitis; Z79.899 Other long term (current) drug therapy
CPT/HCPCS: 36416; 71045; 81001; 82330; 82803; 83735; 83880; 84484; 93005; 96365; 96375; J0612; J1815; J7070; J7611; J7999

== ENCOUNTER 2023-02-20 23:34 | Emergency (ER) | payer MEDICARE, MEDICAID ==
[2023-02-20] MEDS ORDERED: Fleet Saline Enema 133 ML BOT ONE (23:52)
== END 2023-02-21 00:14 | disposition home or self-care (01) ==
LOC: MADERS 23:34
DX: K59.00 Constipation, unspecified (principal); I12.0 Hypertensive chronic kidney disease with stage 5 chronic kidney disease or end stage renal disease; N18.6 End stage renal disease; D64.9 Anemia, unspecified; Z99.2 Dependence on renal dialysis; G62.9 Polyneuropathy, unspecified; M10.00 Idiopathic gout, unspecified site; Z79.899 Other long term (current) drug therapy
CPT/HCPCS: 99283

== ENCOUNTER 2023-04-16 01:56 | Emergency (ER) | payer MEDICARE, MEDICAID ==
[2023-04-16] MEDS ORDERED: Nitroglycerin 0.4 MG TAB 1 EACH ONE ×2 (02:24→02:41)
[2023-04-16 02:43] LABS: #Monocytes 0.7 thou/uL (0.11-0.59); #Neutrophils 9.5 thou/uL (1.40-6.50); %Basophils 0.2 % (0.0-1.0); %Lymphocytes 8.6 % (21.0-51.0); %Monocytes 6.6 % (0.0-10.0); %Neutrophils 84.5 % (42.0-75.0); Hematocrit 31.2 % (36.0-47.0); Hemoglobin 9.9 g/dL (12.0-16.0); Mean Corpuscular HGB CONC 31.9 g/dL (32.0-36.0); Mean Corpuscular Hemoglobin 29.9 pg (27.0-31.0); Mean Platelet Volume 7.6 fL (7.4-10.4); Platelet Count 175 10x3/uL (130-400); RBC Distribution Width 16.6 % (11.5-14.5); Red Blood Cell (RBC) Count 3.32 mill/uL (4.20-5.40); White Blood Cell (WBC) Count 11.2 10x3/uL (4.8-10.8)
[2023-04-16] MEDS ORDERED: fentaNYL 50 mcg/mL 1 mL Vial ONE ×2 (02:46→03:33)
[2023-04-16 02:54] LABS: PTT 28.2 sec (22.9-36.1); Prothrombin Time 13.4 sec (12.0-14.7)
[2023-04-16 02:58] LABS: D-Dimer Test 1.72 *mcg/mL (0.27-0.43)
[2023-04-16 03:05] LABS: Troponin I 0.029 ng/mL (< 0.028)
[2023-04-16 03:08] LABS: ALT (SGPT) Less than 7 U/L (8-55); AST (SGOT) 12 U/L (5-34); Albumin 3.8 g/dL (3.4-4.8); Alkaline Phosphatase 59 U/L (40-110); Anion Gap 18 mmol/L (10-20); BUN (Urea Nitrogen) 45 mg/dL (9.8-20.1); Bilirubin, Total 0.4 mg/dL (0.2-1.2); Calc. Creatinine Clearance 0 mL/min (70-130); Calcium 9.6 mg/dL (7.8-10.44); Carbon Dioxide 23 mmol/L (23-31); Chloride 97 mmol/L (98-107); Estimated GFR 9; Globulin 2.8 g/dL (2.4-3.5); Glucose 100 mg/dL (83-110); Lipase 44 U/L (8-78); Potassium 5.2 mmol/L (3.5-5.1); Protein, Total 6.6 g/dL (5.8-8.1); Sodium 133 mmol/L (136-145)
== END 2023-04-16 04:07 | disposition short-term general hospital (02) ==
LOC: MADERS 01:56
DX: R07.2 Precordial pain (principal); I12.0 Hypertensive chronic kidney disease with stage 5 chronic kidney disease or end stage renal disease; N18.6 End stage renal disease; R79.1 Abnormal coagulation profile; R77.8 Other specified abnormalities of plasma proteins; D64.9 Anemia, unspecified; M10.00 Idiopathic gout, unspecified site; G62.9 Polyneuropathy, unspecified; K58.9 Irritable bowel syndrome, unspecified; Z99.2 Dependence on renal dialysis; Z79.899 Other long term (current) drug therapy
CPT/HCPCS: 71045; 80053; 83690; 84484; 85025; 85379; 85610; 85730; 93005; 94760; J3010; 36415; 96374; 96376

== ENCOUNTER 2023-06-13 13:43 | Emergency (ER) | payer MEDICARE ==
[2023-06-13 15:59] LABS: #Lymphocytes 0.9 thou/uL (1.20-3.40); #Monocytes 0.6 thou/uL (0.11-0.59); #Neutrophils 12.4 thou/uL (1.40-6.50); %Basophils 0.3 % (0.0-1.0); %Lymphocytes 6.7 % (21.0-51.0); %Monocytes 4.4 % (0.0-10.0); %Neutrophils 88.6 % (42.0-75.0); Hematocrit 25.8 % (36.0-47.0); Hemoglobin 8.3 g/dL (12.0-16.0); Mean Corpuscular HGB CONC 32.3 g/dL (32.0-36.0); Mean Corpuscular Hemoglobin 29.9 pg (27.0-31.0); Mean Corpuscular Volume 92.6 fl (78.0-98.0); Mean Platelet Volume 6.4 fL (7.4-10.4); Platelet Count 252 10x3/uL (130-400); RBC Distribution Width 15.3 % (11.5-14.5); Red Blood Cell (RBC) Count 2.78 mill/uL (4.20-5.40)
[2023-06-13 16:14] LABS: ALT (SGPT) 7 U/L (8-55); AST (SGOT) 10 U/L (5-34); Albumin 3.6 g/dL (3.4-4.8); Alkaline Phosphatase 67 U/L (40-110); Anion Gap 18 mmol/L (10-20); BUN (Urea Nitrogen) 38 mg/dL (9.8-20.1); Bilirubin, Total 0.3 mg/dL (0.2-1.2); Calc. Creatinine Clearance 0 mL/min (70-130); Calcium 9.1 mg/dL (7.8-10.44); Carbon Dioxide 27 mmol/L (23-31); Chloride 96 mmol/L (98-107); Estimated GFR 10; Glucose 107 mg/dL (83-110); Lipase 59 U/L (8-78); Potassium 3.8 mmol/L (3.5-5.1); Protein, Total 6.6 g/dL (5.8-8.1); Sodium 137 mmol/L (136-145)
== END 2023-06-13 17:52 ==
LOC: MADERS 13:43
DX: K59.00 Constipation, unspecified (principal); I10 Essential (primary) hypertension
CPT/HCPCS: 36415; 80053; 83605; 83690; 85025

== ENCOUNTER 2023-06-13 20:22 | Emergency (ER) | payer MEDICARE ==
[2023-06-13] MEDS ORDERED: Ipratropium/Albuterol 3 ML NEB ONE (22:42)
[2023-06-13] MEDS ORDERED: Ondansetron ODT 4 MG TAB ONE (23:20)
[2023-06-13] MEDS ORDERED: Mag-Al Plus 1200 MG/1200 MG/120 MG/30 ML UDCUP ONE (23:20)
[2023-06-13] MEDS ORDERED: Lidocaine 2% Viscous 100 ML BOTTLE ONE (23:22)
[2023-06-13] MEDS ORDERED: Lorazepam 1 MG TAB ONE (23:23)
[2023-06-13 23:56] LABS: Troponin I 0.054 ng/mL (< 0.028)
== END 2023-06-14 00:58 ==
LOC: MADERS 20:22
DX: R10.13 Epigastric pain (principal); F41.9 Anxiety disorder, unspecified; I12.9 Hypertensive chronic kidney disease with stage 1 through stage 4 chronic kidney disease, or unspecified chronic kidney disease; N18.4 Chronic kidney disease, stage 4 (severe)
CPT/HCPCS: 36415; 74176; 80053; 83605; 83690; 84484; 85025; 94640; 99283; J7620; Q0162

== ENCOUNTER 2023-09-09 09:30 | Emergency (ER) | payer MEDICARE ==
[2023-09-09 10:35] LABS: Bilirubin Negative (Negative); Blood, Urine Negative (Negative); Clarity Clear (Clear); Glucose, Urine (Dipstick) 100 mg/dL (Negative); Ketone, Urine Negative (Negative); Leukocyte Small (Negative); Nitrite Negative (Negative); Protein, Urine (Dipstick) 100 mg/dL (Neg-Trace); Urobilinogen 0.2 mg/dL (Less than 2); pH, Urine 8.5 (5.0-9.0)
[2023-09-09 10:43] LABS: RBC/HPF 0-3 HPF (0-3)
[2023-09-09 10:44] LABS: Bacteria/HPF Rare-Few HPF (None Seen); Yeast-Budding Rare HPF (None Seen)
[2023-09-09 10:44] LABS: ALT (SGPT) 9 U/L (8-55); AST (SGOT) 13 U/L (5-34); Albumin 3.7 g/dL (3.4-4.8); Alkaline Phosphatase 57 U/L (40-110); Anion Gap 18 mmol/L (10-20); BUN (Urea Nitrogen) 22 mg/dL (9.8-20.1); Bilirubin, Total 0.5 mg/dL (0.2-1.2); Calc. Creatinine Clearance 0 mL/min (70-130); Calcium 9.4 mg/dL (7.8-10.44); Carbon Dioxide 23 mmol/L (23-31); Chloride 100 mmol/L (98-107); Estimated GFR 9; Globulin 2.9 g/dL (2.4-3.5); Glucose 91 mg/dL (83-110); Potassium 4.2 mmol/L (3.5-5.1); Protein, Total 6.6 g/dL (5.8-8.1); Sodium 137 mmol/L (136-145)
[2023-09-09 10:45] LABS: Urine Culture Reflex No No
[2023-09-09 10:47] LABS: Troponin I 0.045 ng/mL (< 0.028)
[2023-09-09 10:51] LABS: Hematocrit 48.9 % (36.0-47.0); Hemoglobin 14.6 g/dL (12.0-16.0); Mean Corpuscular HGB CONC 29.9 g/dL (32.0-36.0); Mean Corpuscular Volume 90.5 fl (78.0-98.0); Mean Platelet Volume 6.5 fL (7.4-10.4); Platelet Count 209 10x3/uL (130-400); RBC Distribution Width 17.5 % (11.5-14.5); Red Blood Cell (RBC) Count 5.41 mill/uL (4.20-5.40); White Blood Cell (WBC) Count 8.6 10x3/uL (4.8-10.8)
[2023-09-09 10:52] LABS: Band 1 % (5-11); Lymphocytes 3 % (21-51); MDiff Complete? YES; Manual Diff?? YES; Monocytes 6 % (0-10); Neutrophil 78 % (42-75); Platelet Adequacy Comment Appears Adequate; RBC Morph Comment Within Normal Limits; Reactive Lymphocytes 12 % (0-10)
[2023-09-09] MEDS ORDERED: Aspirin Chewable 81 MG TAB ONE (11:20)
[2023-09-09] MEDS ORDERED: Prochlorperazine Maleate 5 MG TAB ONE (11:24)
[2023-09-09] MEDS ORDERED: Amlodipine 5 MG TAB ONE (12:21)
[2023-09-09] MEDS ORDERED: hydrALAZINE 10 MG TAB ONE (12:22)
[2023-09-09 12:29] LABS: Troponin I 0.042 ng/mL (< 0.028)
== END 2023-09-09 16:00 ==
LOC: MADERS 09:30
DX: U07.1 COVID-19 (principal); I12.0 Hypertensive chronic kidney disease with stage 5 chronic kidney disease or end stage renal disease; N18.6 End stage renal disease; K21.9 Gastro-esophageal reflux disease without esophagitis; Z79.899 Other long term (current) drug therapy
CPT/HCPCS: 71045; 80053; 81001; 83880; 84484; 85025; 93005; Q0164

== ENCOUNTER 2023-12-18 21:04 | Emergency (ER) | payer MEDICARE ==
[2023-12-19] MEDS ORDERED: Lactulose 20 GM (30 mL) UDCUP PO SCH (02:15)
== END 2023-12-19 01:51 ==
LOC: MADERS 21:04
DX: K59.00 Constipation, unspecified (principal); I12.9 Hypertensive chronic kidney disease with stage 1 through stage 4 chronic kidney disease, or unspecified chronic kidney disease; N18.9 Chronic kidney disease, unspecified
CPT/HCPCS: 99283

== ENCOUNTER 2024-05-31 22:14 | Emergency (ER) | payer MEDICARE, MEDICAID ==
[2024-05-31] MEDS ORDERED: Ipratropium/Albuterol 3 ML NEB ONE (23:41)
== END 2024-05-31 23:55 ==
LOC: MADERS 22:14
DX: R06.02 Shortness of breath (principal); I12.0 Hypertensive chronic kidney disease with stage 5 chronic kidney disease or end stage renal disease; N18.6 End stage renal disease; Z55.6 Problems related to health literacy; Z79.899 Other long term (current) drug therapy
CPT/HCPCS: 71045; J7620

== ENCOUNTER 2024-07-01 15:51 | Emergency (ER) | payer MEDICARE, MEDICAID ==
[2024-07-01] MEDS ORDERED: diphenhydrAMINE 50 MG/ML VIAL ONE (19:16)
[2024-07-01] MEDS ORDERED: traMADol HCl 50 MG TAB ONE (19:16)
== END 2024-07-02 03:35 ==
LOC: MADERS 15:51
DX: G44.209 Tension-type headache, unspecified, not intractable (principal); I12.0 Hypertensive chronic kidney disease with stage 5 chronic kidney disease or end stage renal disease; N18.6 End stage renal disease; Z99.2 Dependence on renal dialysis; Z79.899 Other long term (current) drug therapy
CPT/HCPCS: 96374; J1200

== ENCOUNTER 2024-07-23 22:40 | Emergency (ER) | payer MEDICARE, OTHER ==
[2024-07-23] MEDS ORDERED: Azithromycin 500 MG VIAL ONE (23:48)
[2024-07-23] MEDS ORDERED: fentaNYL 50 mcg/mL 1 mL Vial ONE (23:48)
[2024-07-23] MEDS ORDERED: Ondansetron PF 4 MG/2 ML Vial ONE (23:48)
[2024-07-23] MEDS ORDERED: Sodium Chloride 0.9% 250 ML 250 ML ONE (23:48)
[2024-07-24 00:03] LABS: Band 2 % (5-11); Hematocrit 42.6 % (36.0-47.0); Hemoglobin 12.5 g/dL (12.0-16.0); Lymphocytes 7 % (21-51); MDiff Complete? YES; Mean Corpuscular HGB CONC 29.3 g/dL (32.0-36.0); Mean Corpuscular Hemoglobin 27.1 pg (27.0-31.0); Mean Corpuscular Volume 92.7 fl (78.0-98.0); Mean Platelet Volume 6.1 fL (7.4-10.4); Monocytes 4 % (0-10); Neutrophil 87 % (42-75); Platelet Count 203 10x3/uL (130-400); White Blood Cell (WBC) Count 12.1 10x3/uL (4.8-10.8)
[2024-07-24 00:11] LABS: ALT (SGPT) 76 U/L (Less than 34); AST (SGOT) 60 U/L (11-34); Albumin 3.3 g/dL (3.1-4.5); Alkaline Phosphatase 131 U/L (40-110); Anion Gap 21 mmol/L (10-20); BUN (Urea Nitrogen) 49 mg/dL (9.8-20.1); Bilirubin, Total 0.5 mg/dL (0.3-1.2); Calc. Creatinine Clearance 0 mL/min (70-130); Calcium 8.7 mg/dL (7.8-10.44); Carbon Dioxide 21 mmol/L (23-31); Chloride 103 mmol/L (98-107); Estimated GFR 5; Globulin 3.4 g/dL (2.4-3.5); Glucose 120 mg/dL (83-110); Potassium 5.1 mmol/L (3.5-5.1); Protein, Total 6.7 g/dL (5.8-8.1); Sodium 140 mmol/L (136-145)
[2024-07-24 00:13] LABS: Troponin I 0.034 ng/mL (< 0.028)
[2024-07-24] MEDS ORDERED: Promethazine HCl 25 MG/ML VIAL ONE (01:23)
[2024-07-24] MEDS ORDERED: Famotidine/PF 20 mg/2ml Vial ONE (01:24)
[2024-07-24 02:54] LABS: Bacteria/HPF 3+ HPF (None Seen); Bilirubin Negative (Negative); Blood, Urine Negative (Negative); CAUTI Indications for Culture Pelvic or flank pain; Clarity Cloudy (Clear); Glucose, Urine (Dipstick) Negative (Negative); Ketone, Urine Negative (Negative); Leukocyte Small (Negative); Nitrite Negative (Negative); Protein, Urine (Dipstick) > or equal to 300 mg/dL (Neg-Trace); RBC/HPF 0-3 HPF (0-3); Specific Gravity, Urine 1.025 (1.005-1.030); Urobilinogen 0.2 mg/dL (Less than 2); WBC/HPF 21-50 HPF (0-3)
[2024-07-24 02:55] LABS: Urine Culture Reflex Yes Yes
[2024-07-24] MEDS ORDERED: Cefepime 1 GM VIAL ONE (03:03)
[2024-07-24] MEDS ORDERED: Sodium Chloride 0.9% 100 ML ONE (03:03)
== END 2024-07-24 05:44 | disposition short-term general hospital (02) ==
LOC: MADERS 22:40
DX: H92.03 Otalgia, bilateral (principal); R11.2 Nausea with vomiting, unspecified; I12.0 Hypertensive chronic kidney disease with stage 5 chronic kidney disease or end stage renal disease; N18.6 End stage renal disease; Z79.899 Other long term (current) drug therapy; Z99.2 Dependence on renal dialysis
CPT/HCPCS: 80053; 84484; 85025; J0456; J2405; J3010; J7050; 51702; 74176; 81001; 83605; 83690; 87077; 87086; 93005; 96365; 96367; 96375; J0692; J2550; J3490

== ENCOUNTER 2024-08-02 11:40 | Emergency (ER) | payer MEDICARE, OTHER ==
[2024-08-02] MEDS ORDERED: Carbamide Peroxide 6.5% Otic Drops 15 ml Bottle ONE (12:16)
== END 2024-08-02 14:02 ==
LOC: MADERS 11:40
DX: H61.23 Impacted cerumen, bilateral (principal); H66.92 Otitis media, unspecified, left ear; I12.0 Hypertensive chronic kidney disease with stage 5 chronic kidney disease or end stage renal disease; N18.6 End stage renal disease; Z99.2 Dependence on renal dialysis
CPT/HCPCS: 69210; 99282

== ENCOUNTER 2024-08-30 07:51 | Emergency (ER) | payer MEDICARE, OTHER | END 2024-08-30 09:02 | LOC: MADERS 07:51 | DX: M25.512 Pain in left shoulder (principal); I12.0 Hypertensive chronic kidney disease with stage 5 chronic kidney disease or end stage renal disease; N18.6 End stage renal disease; Z99.2 Dependence on renal dialysis | CPT/HCPCS: 99283 ==

== ENCOUNTER 2025-01-09 20:10 | Emergency (ER) | payer MEDICARE, OTHER ==
[2025-01-09 22:34] LABS: ALT (SGPT) 7 U/L (Less than 34); AST (SGOT) 25 U/L (11-34); Albumin 3.5 g/dL (3.1-4.5); Alkaline Phosphatase 61 U/L (40-110); Anion Gap 20 mmol/L (10-20); BUN (Urea Nitrogen) 25 mg/dL (9.8-20.1); Bilirubin, Total 0.4 mg/dL (0.3-1.2); Calc. Creatinine Clearance 0 mL/min (70-130); Calcium 9.5 mg/dL (7.8-10.44); Carbon Dioxide 21 mmol/L (23-31); Chloride 99 mmol/L (98-107); Globulin 3.0 g/dL (2.4-3.5); Glucose 120 mg/dL (83-110); Lipase 29 U/L (8-78); Potassium 4.2 mmol/L (3.5-5.1); Sodium 136 mmol/L (136-145)
[2025-01-09 22:41] LABS: Anisocytosis SLIGHT = 6-15 cells (100X) (0-5/hpf); Hematocrit 40.0 % (36.0-47.0); Hemoglobin 11.9 g/dL (12.0-16.0); MDiff Complete? YES; Mean Corpuscular Hemoglobin 26.1 pg (27.0-31.0); Mean Corpuscular Volume 87.7 fl (78.0-98.0); Platelet Adequacy Comment Appears Adequate; Platelet Count 164 10x3/uL (130-400); Red Blood Cell (RBC) Count 4.56 mill/uL (4.20-5.40); White Blood Cell (WBC) Count 8.8 10x3/uL (4.8-10.8)
[2025-01-09 23:09] LABS: Troponin I 0.012 ng/mL (< 0.028)
[2025-01-09 23:31] LABS: Glucose, Urine (Dipstick) 100 mg/dL (Negative); Leukocyte Negative (Negative); Protein, Urine (Dipstick) > or equal to 300 mg/dL (Neg-Trace); Specific Gravity, Urine 1.020 (1.005-1.030)
[2025-01-09 23:32] LABS: CAUTI Indications for Culture Pelvic or flank pain; WBC/HPF 0-3 HPF (0-3)
[2025-01-09 23:33] LABS: Urine Culture Reflex No No
[2025-01-09] MEDS ORDERED: Acetaminophen 500 MG TAB ONE (23:48)
== END 2025-01-10 00:06 ==
LOC: MADERS 20:10
DX: K56.41 Fecal impaction (principal); R11.2 Nausea with vomiting, unspecified; I12.0 Hypertensive chronic kidney disease with stage 5 chronic kidney disease or end stage renal disease; N18.6 End stage renal disease; Z99.2 Dependence on renal dialysis
CPT/HCPCS: 51701; 74176; 80053; 81001; 83605; 83690; 84484; 85025; 93005; Q0162

== ENCOUNTER 2025-04-29 15:55 | Outpatient (CLI) | payer MEDICARE ==
[2025-04-29 16:44] LABS: #Basophils 0.0 thou/uL (0.0-0.2); #Eosinophils 0.0 thou/uL (0.0-0.7); #Lymphocytes 1.0 thou/uL (1.20-3.40); #Monocytes 0.4 thou/uL (0.11-0.59); #Neutrophils 5.2 thou/uL (1.40-6.50); %Basophils 0.4 % (0.0-1.0); %Eosinophils 0.0 % (0.0-10.0); %Lymphocytes 14.8 % (21.0-51.0); %Monocytes 6.3 % (0.0-10.0); %Neutrophils 78.6 % (42.0-75.0); Hematocrit 47.0 % (36.0-47.0); Hemoglobin 13.8 g/dL (12.0-16.0); Mean Corpuscular Hemoglobin 26.3 pg (27.0-31.0); Mean Corpuscular Volume 89.5 fl (78.0-98.0); Platelet Count 202 10x3/uL (130-400); Red Blood Cell (RBC) Count 5.25 mill/uL (4.20-5.40); White Blood Cell (WBC) Count 6.6 10x3/uL (4.8-10.8)
[2025-04-29 16:48] LABS: Glucose, Urine (Dipstick) Negative (Negative); Leukocyte Large (Negative); Protein, Urine (Dipstick) 100 mg/dL (Neg-Trace); Specific Gravity, Urine 1.015 (1.005-1.030)
[2025-04-29 16:53] LABS: Bacteria/HPF 1+ HPF (None Seen); RBC/HPF 21-50 HPF (0-3); WBC/HPF Greater Than 50 HPF (0-3)
== END 2025-04-29 15:56 | disposition home or self-care (01) ==
LOC: MADLAB 15:55
PROVIDERS: ATTEND Family Medicine
DX: D64.9 Anemia, unspecified (principal)
CPT/HCPCS: 81003; 81015; 85025; 87077; 87086; 87186